=== PATIENT | female | born 1945 | race Caucasian/White ===

== ENCOUNTER 2017-03-23 07:41 | Emergency (ER) | payer MEDICARE ==
[2017-03-23 07:49] VITALS: RESP 16; TEMP 97.8
[2017-03-23] MEDS ORDERED: ONDANSETRON 4 MG/2 ML VIAL IVP STA (08:19)
[2017-03-23] MEDS ORDERED: SODIUM CHLORIDE 0.9% 1,000 ML IV STA (08:19)
[2017-03-23] MEDS ORDERED: FAMOTIDINE 20 MG/2 ML VIAL IV STA (08:19)
--- NOTE | 2017-03-23 08:28 | ED ---
General Adult HPI - General Chief complaint: Recheck/Abnormal Lab/Rx Stated complaint: Reaction to medication Time Seen by Provider: 03/23/17 08:13 Source: patient, RN notes reviewed Mode of arrival: wheelchair Limitations: no limitations - History of Present Illness Initial comments: Patient is a 71-year-old female who had her wisdom teeth on the lower removed 2 days ago. Given Tylenol codeine is also been taking ibuprofen for the pain. She states she's had no appetite since this procedure. She states she's only had a couple yogurt and a few glasses of water to drink. She does admit that seems like when she takes ibuprofen it upsets her stomach. She states she feels nauseated. No appetite feeling kind of weak this morning. Patient denies any other complaints or symptoms. Patient says she's taken without codeine before and never had this Reaction. She believes that the ibuprofen making her feel bad. She states she stopped taking it this morning. Patient denies any recent fever, chills, shortness of breath, chest pain, back pain, vomiting, numbness or tingling, dysuria or hematuria, constipation or diarrhea, headaches or visual changes, or any other complaints. - Related Data Home Medications Medication Instructions Recorded Confirmed Aspirin 40.5 mg PO DAILY 10/18/13 10/25/14 Levothyroxine Sodium [Synthroid] 75 mcg PO DAILY 10/18/13 10/25/14 Simvastatin [Zocor] 20 mg PO HS 10/18/13 10/25/14 diphenhydrAMINE [Benadryl] 25 mg PO HS PRN 10/18/13 10/25/14 Misoprostol [Cytotec] 100 mcg PO DAILY PRN 10/22/14 10/25/14 Previous Rx's Medication Instructions Recorded Ondansetron Odt [Zofran ODT] 4 mg PO Q8HR PRN #20 tab 03/23/17 Allergies Allergy/AdvReac Type Severity Reaction Status Date / Time acetaminophen AdvReac Anxiety Verified 03/23/17 07:49 [From Darvocet-N] and insomnia propoxyphene napsylate AdvReac anxiety Verified 03/23/17 07:49 [From Darvocet-N] and insomnia tetracycline [Tetracycline] AdvReac bowel Verified 03/23/17 07:49 aggrivation Review of Systems ROS Statement: Those systems with pertinent positive or pertinent negative responses have been documented in the HPI. ROS Other: All systems not noted in ROS Statement are negative. Past Medical History Past Medical History: Hyperlipidemia, Thyroid Disorder Additional Past Medical History / Comment(s): diverticulitis, pancreatitis, auto immune disorder- lichenplantis History of Any Multi-Drug Resistant Organisms: None Reported Past Surgical History: Bladder Surgery, Cholecystectomy, Hysterectomy, Tubal Ligation Additional Past Surgical History / Comment(s): nephroplexy, bowel resection, bladder suspension, wisdom teeth removal. Past Anesthesia/Blood Transfusion Reactions: No Reported Reaction Past Psychological History: No Psychological Hx Reported Smoking Status: Never smoker Past Alcohol Use History: Occasional Past Drug Use History: None Reported - Past Family History Mother Family Medical History: Dementia Father Additional Family Medical History / Comment(s): aortic anersym General Exam Limitations: no limitations Course Vital Signs 03/23/17 07:42 Temperature 97.8 F Pulse Rate 75 Respiratory 16 Rate Blood Pressure 147/72 O2 Sat by Pulse 100 Oximetry Medical Decision Making - Medical Decision Making Patient feeling well at this time was given nausea medication Pepcid and fluids. Patient able tolerate by mouth liquids and food here in emergency room. Will be discharged home with nausea medication. Advised only use ibuprofen if she is able to eat and drink and not taken on an empty stomach. Advised return if any symptoms increase or worsen or for any other concerns. - Lab Data Result diagrams: 03/23/17 08:30 03/23/17 08:30 Lab Results 03/23/17 03/23/17 03/23/17 Range/Units 07:52 08:30 08:30 WBC 7.9 (3.8-10.6) k/uL RBC 4.95 (3.80-5.40) m/uL Hgb 14.1 (11.4-16.0) gm/dL Hct 44.6 (34.0-46.0) % MCV 90.1 (80.0-100.0) fL MCH 28.5 (25.0-35.0) pg MCHC 31.6 (31.0-37.0) g/dL RDW 14.1 (11.5-15.5) % Plt Count 225 (150-450) k/uL Neutrophils % 88 % Lymphocytes % 6 % Monocytes % 3 % Eosinophils % 1 % Basophils % 1 % Neutrophils # 6.9 (1.3-7.7) k/uL Lymphocytes # 0.5 L (1.0-4.8) k/uL Monocytes # 0.3 (0-1.0) k/uL Eosinophils # 0.1 (0-0.7) k/uL Basophils # 0.0 (0-0.2) k/uL Sodium 140 (137-145) mmol/L Potassium 4.3 (3.5-5.1) mmol/L Chloride 106 (98-107) mmol/L Carbon Dioxide 16 L (22-30) mmol/L Anion Gap 18 mmol/L BUN 23 H (7-17) mg/dL Creatinine 1.16 H (0.52-1.04) mg/dL Est GFR (MDRD) Af Amer 56 (>60 ml/min/1.73 sqM) Est GFR (MDRD) Non-Af 46 (>60 ml/min/1.73 sqM) Glucose 67 L (74-99) mg/dL Calcium 9.6 (8.4-10.2) mg/dL Total Bilirubin 0.5 (0.2-1.3) mg/dL AST 54 H (14-36) U/L ALT 51 (9-52) U/L Alkaline Phosphatase 94 (38-126) U/L Total Protein 6.7 (6.3-8.2) g/dL Albumin 4.2 (3.5-5.0) g/dL Influenza Type A RNA Not Detected (Not Detectd) Influenza Type B (PCR) Not Detected (Not Detectd) Disposition Clinical Impression: Nausea Disposition: HOME SELF-CARE Condition: Good Instructions: Acute Nausea and Vomiting (ED) Additional Instructions: Please do not take ibuprofen on an empty stomach. Please use nausea medication as needed for symptoms and increase oral fluids as discussed. Please return to emergency room symptoms increase or worsen or for any other concerns. Prescriptions: Ondansetron Odt [Zofran ODT] 4 mg PO Q8HR PRN #20 tab PRN Reason: Nausea Referrals: Shad Low MD [Primary Care Provider] - 1-2 days Time of Disposition: 09:30
[2017-03-23 08:40] LABS: Basophils % (A) 1 %; Eosinophils # (A) 0.1 k/uL (0-0.7); Eosinophils % (A) 1 %; HCT 44.6 % (34.0-46.0); HGB 14.1 gm/dL (11.4-16.0); Lymphocytes # (A) 0.5 k/uL (1.0-4.8); Lymphocytes % (A) 6 %; MCH 28.5 pg (25.0-35.0); MCHC 31.6 g/dL (31.0-37.0); MCV 90.1 fL (80.0-100.0); Mean Platelet Volume 6.2; Monocytes # (A) 0.3 k/uL (0-1.0); Monocytes % (A) 3 %; Neutrophils # (A) 6.9 k/uL (1.3-7.7); Neutrophils % (A) 88 %; Platelet Count 225 k/uL (150-450); RBC 4.95 m/uL (3.80-5.40); RDW 14.1 % (11.5-15.5); WBC 7.9 k/uL (3.8-10.6)
[2017-03-23 08:48] LABS: Albumin 4.2 g/dL (3.5-5.0); Calcium 9.6 mg/dL (8.4-10.2); Potassium 4.3 mmol/L (3.5-5.1); Total Bilirubin 0.5 mg/dL (0.2-1.3); Total Protein 6.7 g/dL (6.3-8.2)
[2017-03-23 09:38] VITALS: BP 136/70; PULSE 78
== END 2017-03-23 09:38 | disposition home or self-care (01) ==
LOC: EC 07:41
DX: R11.0 Nausea (principal); E78.5 Hyperlipidemia, unspecified; E07.9 Disorder of thyroid, unspecified; Z79.82 Long term (current) use of aspirin; Z79.899 Other long term (current) drug therapy; Z88.1 Allergy status to other antibiotic agents; Z88.5 Allergy status to narcotic agent; Z88.8 Allergy status to other drugs, medicaments and biological substances
CPT/HCPCS: 99284; 96374; 96375; 96361; 36415; 80053; 85025; 87502; J2405

== ENCOUNTER 2017-05-04 11:32 | Observation (INO) | payer MEDICARE ==
[2017-05-04] MEDS ORDERED: SODIUM CHLORIDE 0.9% 1,000 ML IV STA (12:17)
[2017-05-04] MEDS ORDERED: METOCLOPRAMIDE 5 MG/ML 2 ML VIAL IVP STA (12:17)
[2017-05-04] MEDS ORDERED: SCOPOLAMINE 1.5MG/72HR PATCH TRANSDERM STA (12:18)
[2017-05-04] MEDS ORDERED: MECLIZINE 12.5 MG TAB PO STA (12:18)
--- NOTE | 2017-05-04 12:20 | ED ---
General Adult HPI - General Chief complaint: Dizziness Stated complaint: Dizziness Time Seen by Provider: 05/04/17 12:02 Source: patient, family, RN notes reviewed Mode of arrival: wheelchair Limitations: no limitations - History of Present Illness Initial comments: Patient is a pleasant 72-year-old female presenting to the emergency department with dizziness and nauseousness. Onset was 8 this morning. Patient feels like she is spinning and off balance. states he needs to help her walk. Patient feels like everything is spinning. No history of similar symptoms previously. Patient denies any abdominal pain. Patient states this is not like her previous pancreatitis. No confusion. No weakness. - Related Data Home Medications Medication Instructions Recorded Confirmed Aspirin 40.5 mg PO DAILY 10/18/13 05/04/17 Levothyroxine Sodium [Synthroid] 75 mcg PO DAILY 10/18/13 05/04/17 Simvastatin [Zocor] 20 mg PO HS 10/18/13 05/04/17 diphenhydrAMINE [Benadryl] 25 mg PO HS PRN 10/18/13 05/04/17 Misoprostol [Cytotec] 100 mcg PO DAILY PRN 10/22/14 05/04/17 Previous Rx's Medication Instructions Recorded Ondansetron Odt [Zofran ODT] 4 mg PO Q8HR PRN #20 tab 03/23/17 Allergies Allergy/AdvReac Type Severity Reaction Status Date / Time acetaminophen AdvReac Anxiety Verified 05/04/17 12:43 [From Darvocet-N] and insomnia propoxyphene napsylate AdvReac anxiety Verified 05/04/17 12:43 [From Darvocet-N] and insomnia tetracycline [Tetracycline] AdvReac bowel Verified 05/04/17 12:43 aggrivation Review of Systems ROS Statement: Those systems with pertinent positive or pertinent negative responses have been documented in the HPI. ROS Other: All systems not noted in ROS Statement are negative. Constitutional: Denies: fever Eyes: Denies: eye pain ENT: Denies: ear pain Respiratory: Denies: cough Cardiovascular: Denies: chest pain Endocrine: Denies: fatigue Gastrointestinal: Reports: nausea. Denies: abdominal pain Genitourinary: Denies: dysuria Musculoskeletal: Denies: back pain Skin: Denies: rash Neurological: Reports: vertigo. Denies: headache, weakness, confusion Past Medical History Past Medical History: Hyperlipidemia, Thyroid Disorder Additional Past Medical History / Comment(s): diverticulitis, pancreatitis, auto immune disorder- lichenplantis History of Any Multi-Drug Resistant Organisms: None Reported Past Surgical History: Bladder Surgery, Cholecystectomy, Hysterectomy, Tubal Ligation Additional Past Surgical History / Comment(s): nephroplexy, bowel resection, bladder suspension, wisdom teeth removal. Past Anesthesia/Blood Transfusion Reactions: No Reported Reaction Past Psychological History: No Psychological Hx Reported Smoking Status: Never smoker Past Alcohol Use History: Occasional Past Drug Use History: None Reported - Past Family History Mother Family Medical History: Dementia Father Additional Family Medical History / Comment(s): aortic anersym General Exam Limitations: no limitations General appearance: alert, other (Patient appears nauseous) Head exam: Present: atraumatic, normocephalic Eye exam: Present: normal appearance, PERRL, EOMI. Absent: nystagmus ENT exam: Present: normal exam Neck exam: Present: normal inspection Respiratory exam: Present: normal lung sounds bilaterally Cardiovascular Exam: Present: regular rate, normal rhythm GI/Abdominal exam: Present: soft. Absent: distended, tenderness Extremities exam: Present: normal inspection Neurological exam: Present: alert, oriented X3, CN II-XII intact. Absent: motor sensory deficit Expanded Neurological exam: Present: protecting the airway Cranial nerves: EOM's Intact: Normal Sensory exam: Upper Extremity Light Touch: Normal, Lower Extremity Light Touch: Normal Motor strength exam: RUE: 5, LUE: 5, RLE: 5, LLE: 5 Eye Response: (4) open spontaneously Motor Response: (6) obeys commands Verbal Response: (5) oriented Psychiatric exam: Present: normal affect, normal mood Skin exam: Present: normal color Course Vital Signs 05/04/17 05/04/17 11:50 13:49 Temperature 98.1 F Pulse Rate 68 61 Respiratory 20 20 Rate Blood Pressure 148/96 152/71 O2 Sat by Pulse 99 99 Oximetry EKG Findings - EKG Comments: EKG Findings:: Normal sinus rhythm 63. HI 150. QRS 84. QT 446. QTc 456. Normal axis. Normal QRS. No acute ST change. Medical Decision Making - Medical Decision Making Patient reevaluated and somewhat improved. Dizziness has improved however nausea still remains. Patient and family updated on results and plan. Dr. Morin was paged for admission for Dr. Low. - Lab Data Result diagrams: 05/04/17 12:30 05/04/17 12:30 Lab Results 05/04/17 05/04/17 05/04/17 Range/Units 12:30 12:30 12:30 WBC 6.1 (3.8-10.6) k/uL RBC 4.89 (3.80-5.40) m/uL Hgb 14.1 (11.4-16.0) gm/dL Hct 41.6 (34.0-46.0) % MCV 85.2 (80.0-100.0) fL MCH 28.8 (25.0-35.0) pg MCHC 33.8 (31.0-37.0) g/dL RDW 13.3 (11.5-15.5) % Plt Count 285 (150-450) k/uL Neutrophils % 71 % Lymphocytes % 16 % Monocytes % 5 % Eosinophils % 3 % Basophils % 1 % Neutrophils # 4.3 (1.3-7.7) k/uL Lymphocytes # 1.0 (1.0-4.8) k/uL Monocytes # 0.3 (0-1.0) k/uL Eosinophils # 0.2 (0-0.7) k/uL Basophils # 0.1 (0-0.2) k/uL PT 10.3 (9.0-12.0) sec INR 1.1 (<1.2) APTT 22.9 (22.0-30.0) sec Sodium 139 (137-145) mmol/L Potassium 4.2 (3.5-5.1) mmol/L Chloride 105 (98-107) mmol/L Carbon Dioxide 23 (22-30) mmol/L Anion Gap 11 mmol/L BUN 10 (7-17) mg/dL Creatinine 0.65 (0.52-1.04) mg/dL Est GFR (CKD-EPI)AfAm >90 (>60 ml/min/1.73 sqM) Est GFR (CKD-EPI)NonAf 89 (>60 ml/min/1.73 sqM) Glucose 90 (74-99) mg/dL Calcium 9.2 (8.4-10.2) mg/dL Total Bilirubin 0.4 (0.2-1.3) mg/dL AST 42 H (14-36) U/L ALT 46 (9-52) U/L Alkaline Phosphatase 95 (38-126) U/L Total Protein 6.8 (6.3-8.2) g/dL Albumin 4.0 (3.5-5.0) g/dL - Radiology Data Radiology results: report reviewed (Computed tomography scan of the brain shows no acute process) Disposition Clinical Impression: Acute vomiting, Vertigo Disposition: ADMITTED IP TO THIS HOSP Referrals: Shad Low MD [Primary Care Provider] - 1-2 days Decision Time: 14:32
--- NOTE | 2017-05-04 13:20 | CT ---
EXAMINATION TYPE: CT brain wo con DATE OF EXAM: 05/04/2017 HISTORY: Patient complains of nausea, vomiting, and history of pancreatitis. CT DLP: 990 mGycm. Automated Exposure Control for Dose Reduction was Utilized. TECHNIQUE: CT scan of the head is performed without contrast. COMPARISON: None. FINDINGS: There is no acute intracranial hemorrhage or midline shift identified. There is diffuse v entricular and sulcal prominence consistent with diffuse age-related cerebral atrophy. There is mild low-attenuation in the periventricular white matter consistent with chronic small vessel ischemic ch royer. The globes are intact and the visualized sinuses are clear. IMPRESSION: No acute intracranial hemorrhage or midline shift. There is mild diffuse age-related ce rebral atrophy and chronic small vessel ischemic change noted.
--- NOTE | 2017-05-04 13:26 | XR ---
EXAMINATION TYPE: XR chest 2V DATE OF EXAM: 05/04/2017 COMPARISON: Chest x-ray September 13, 2014 HISTORY: Weakness and nausea. TECHNIQUE: Frontal and lateral views of the chest are obtained. FINDINGS: Overlying bra artifact is present on current study. There is no focal air space opacity, p leural effusion, or pneumothorax seen. The cardiac silhouette size is within normal limits. The os seous structures are intact. IMPRESSION: No acute cardiopulmonary process.
[2017-05-04 13:34] LABS: Basophils # (A) 0.1 k/uL (0-0.2); Basophils % (A) 1 %; Eosinophils # (A) 0.2 k/uL (0-0.7); Eosinophils % (A) 3 %; HCT 41.6 % (34.0-46.0); HGB 14.1 gm/dL (11.4-16.0); Lymphocytes % (A) 16 %; MCH 28.8 pg (25.0-35.0); MCHC 33.8 g/dL (31.0-37.0); MCV 85.2 fL (80.0-100.0); Mean Platelet Volume 6.1; Monocytes # (A) 0.3 k/uL (0-1.0); Monocytes % (A) 5 %; Neutrophils # (A) 4.3 k/uL (1.3-7.7); Neutrophils % (A) 71 %; Platelet Count 285 k/uL (150-450); RBC 4.89 m/uL (3.80-5.40); RDW 13.3 % (11.5-15.5); WBC 6.1 k/uL (3.8-10.6)
[2017-05-04 13:37] LABS: ALT 46 U/L (9-52); AST 42 U/L (14-36); Alkaline Phosphatase 95 U/L (38-126); Anion Gap 11 mmol/L; Blood Urea Nitrogen 10 mg/dL (7-17); Calcium 9.2 mg/dL (8.4-10.2); Carbon Dioxide 23 mmol/L (22-30); Chloride 105 mmol/L (98-107); Glucose 90 mg/dL (74-99); Potassium 4.2 mmol/L (3.5-5.1); Sodium 139 mmol/L (137-145); Total Bilirubin 0.4 mg/dL (0.2-1.3); Total Protein 6.8 g/dL (6.3-8.2)
[2017-05-04] MEDS ORDERED: ONDANSETRON 4 MG/2 ML VIAL IVP STA (13:47)
[2017-05-04 13:48] LABS: INR 1.1 (<1.2); Partial Thromboplastin Time 22.9 sec (22.0-30.0); Prothrombin Time 10.3 sec (9.0-12.0)
[2017-05-04] MEDS ORDERED: ONDANSETRON 4 MG/2 ML VIAL IVP PRN (14:32)
[2017-05-04] MEDS ORDERED: LORazepam 2 MG/ML INJ IV PRN (14:32)
[2017-05-04] MEDS ORDERED: NALOXONE 0.4 MG/ML 1 ML VIAL IV PRN (14:32)
[2017-05-04] MEDS ORDERED: MECLIZINE 25 MG TAB PO PRN (14:35)
[2017-05-04 15:50] VITALS: BMI 20.9
--- NOTE | 2017-05-04 16:43 | P.CNNES ---
History of Present Illness Consult date: 05/04/17 Reason for Consult: Patient admitted with acute vertigo. History of Present Illness: This patient is a 72-year-old right-handed white female who was in her usual state of health until early this morning. Patient states she awoke at about 8 AM and was beginning her morning routine when she suddenly felt dizzy and off balance. She is feeling as if she was spinning around her room when she was walking. She states she had to hold onto the campos to get from the bedroom to the bathroom area. She was quite alarmed as she has never had this experience her feeling before. She does have a history of pancreatitis and apparently along with this symptom she was beginning to feel nauseated and according to her who was at bedside was also retching which was concerning for him. The patient states that she did not hit her head or have any trauma prior to the onset of the dizziness. As noted she has had no previous episodes of vertigo or dizziness in the past. Her decided to bring her to the emergency room and she was seen in the ER by Dr. Ruiz. She was sent for a computed tomography scan of the brain today which revealed no acute intracranial hemorrhage or midline shift. There is mild diffuse age-related cerebral atrophy and chronic small vessel ischemic changes noted. Patient was subsequent admitted to Hospital. She was treated with some Zofran as well as Antivert in the emergency room. She is now feeling somewhat better and her retching and nausea symptoms have completely resolved. On her neurological examination the patient does not appear to have any evidence of horizontal or vertical nystagmus on gaze testing. Her neurological examination is otherwise nonfocal at this time. Patient states she possibly may have had increase in salt intake over the last few days due to a change in her diet but this has not been very clearly defined by her. We have recommended that she should follow a low-sodium diet and to restrict fluid to some degree as this may bring on acute vertigo symptoms as well. Once again the patient denies any history of closed head injury or head trauma recently. She has now been admitted and neurology has been consulted for further evaluation and recommendations. Review of Systems Constitutional: Denies chills, Denies fever Eyes: denies blurred vision, denies pain Ears, nose, mouth and throat: Denies headache, Denies sore throat Cardiovascular: Denies chest pain, Denies shortness of breath Respiratory: Denies cough Gastrointestinal: Denies abdominal pain, Denies diarrhea, Denies nausea, Denies vomiting Genitourinary: Denies dysuria, Denies hematuria Musculoskeletal: Denies myalgias Integumentary: Denies pruritus, Denies rash Neurological: Reports gait dysfunction, Reports vertigo, Denies numbness, Denies weakness Psychiatric: Denies anxiety, Denies depression Endocrine: Denies fatigue, Denies weight change Past Medical History Past Medical History: Hyperlipidemia, Thyroid Disorder Additional Past Medical History / Comment(s): diverticulitis, pancreatitis, auto immune disorder- lichenplantis History of Any Multi-Drug Resistant Organisms: None Reported Past Surgical History: Bladder Surgery, Cholecystectomy, Hysterectomy, Tubal Ligation Additional Past Surgical History / Comment(s): nephroplexy, bowel resection, bladder suspension, wisdom teeth removal. Past Anesthesia/Blood Transfusion Reactions: No Reported Reaction Past Psychological History: No Psychological Hx Reported Smoking Status: Former smoker Past Alcohol Use History: Occasional Past Drug Use History: None Reported - Past Family History Mother Family Medical History: Dementia Father Additional Family Medical History / Comment(s): aortic anersym Medications and Allergies Home Medications Medication Instructions Recorded Confirmed Type Aspirin 40.5 mg PO DAILY 10/18/13 05/04/17 History Levothyroxine Sodium [Synthroid] 75 mcg PO DAILY 10/18/13 05/04/17 History Simvastatin [Zocor] 20 mg PO HS 10/18/13 05/04/17 History diphenhydrAMINE [Benadryl] 25 mg PO HS PRN 10/18/13 05/04/17 History Misoprostol [Cytotec] 100 mcg PO DAILY PRN 10/22/14 05/04/17 History Ondansetron Odt [Zofran ODT] 4 mg PO Q8HR PRN #20 tab 03/23/17 05/04/17 Rx Allergies Allergy/AdvReac Type Severity Reaction Status Date / Time acetaminophen AdvReac Anxiety Verified 05/04/17 12:43 [From Darvocet-N] and insomnia propoxyphene napsylate AdvReac anxiety Verified 05/04/17 12:43 [From Darvocet-N] and insomnia tetracycline [Tetracycline] AdvReac bowel Verified 05/04/17 12:43 aggrivation Physical Examination - Vital Signs Vital Signs: Vital Signs Temp Pulse Pulse Resp BP BP Pulse Ox 05/04/17 15:27 97.8 F 70 60 14 128/67 140/65 99 05/04/17 14:36 61 18 146/69 99 05/04/17 13:49 61 20 152/71 99 05/04/17 11:50 98.1 F 68 20 148/96 99 Intake and Output 05/04/17 05/04/17 05/04/17 06:59 14:59 22:59 Other: Voiding Method Toilet Weight 52.617 kg 52 kg Patient Weight 05/05/17 07:59 Weight 52 kg - Constitutional General appearance: average body habitus, cooperative - EENT EENT: PERRL, mucous membranes moist - Respiratory Respiratory: lungs clear, normal breath sounds - Cardiovascular Cardiovascular: regular rate, normal S1, normal S2 Extremities: no peripheral edema bilaterally - Gastrointestinal Gastrointestinal: normoactive bowel sounds - Integumentary Integumentary: normal - Neurologic Cranial nerve examination: PERRL, EOMI, VFF, V1/V2/V3 grossly intact, face symmetric, tongue midline, intact gag reflex, intact corneal reflex, normal palatal elevation Speech examination: intact Sensorimotor examination: intact Detailed motor examination: grossly full strength in all extremities Motor examination - right side: 4/5: biceps, triceps, wrist flexion, wrist extension, morning news producer, hip flexors, knee extensors, dorsiflexion, toe extension (EHL) , plantarflexion Motor examination - left side: 4/5: biceps, triceps, wrist flexion, wrist extension, morning news producer, hip flexors, knee extensors, dorsiflexion, toe extension (EHL) , plantarflexion Detailed sensory examination: intact Reflex and gait examination: intact Reflexes: 1+: ankle, bicep, knee, tricep - Musculoskeletal Musculoskeletal: no pain - Psychiatric Psychiatric: mood/affect appropriate, cooperative Results - Laboratory Findings CBC and BMP: 05/04/17 12:30 05/04/17 12:30 Abnormal Lab Findings: Abnormal Labs 05/04/17 12:30 AST 42 H Assessment and Plan (1) Benign paroxysmal positional vertigo Current Visit: Yes Status: Acute Code(s): H81.10 - BENIGN PAROXYSMAL VERTIGO , UNSPECIFIED EAR SNOMED Code(s): 584352069 (2) Acute vomiting Current Visit: Yes Status: Acute Code(s): R11.10 - VOMITING, UNSPECIFIED SNOMED Code(s): 69077087 (3) Pancreatitis Current Visit: No Status: Acute Code(s): K85.9 - ACUTE PANCREATITIS, UNSPECIFIED * DO NOT USE * SNOMED Code(s): 33222348 (4) Metabolic acidosis Current Visit: No Status: Acute Code(s): E87.2 - ACIDOSIS SNOMED Code(s): 83040519 Plan: This patient is a 72-year-old female who was admitted to Hospital with symptoms of acute onset of vertigo and spinning sensation early this morning. She awoke at 8 AM and was beginning her morning routine when she was experiencing spinning sensation and vertigo of sudden onset. She was also slowly beginning to be nauseated and had some upset stomach feeling. She was feeling nauseated to the point that she was retching at some point this morning and her was concerned. She was brought into the emergency room where she was evaluated by Dr. Ruiz. She went for a computed tomography scan of the brain results which are noted above. There was no acute findings. Patient was given some Reglan and Antivert in the emergency room and admitted to Hospital. Her neurological examination at this time is nonfocal. This patient likely has an episode of acute benign paroxysmal positional vertigo. We have recommended that she be placed on Antivert 25 mg by mouth twice a day as a scheduled dose for the next 2 weeks. She is to follow a low-sodium diet and to restrict her fluids somewhat. She may follow-up in the outpatient neurology clinic in 3-4 weeks. Her neurological examination at this time is nonfocal. We have reviewed the CAT scan results and our impression and plan with the patient in detail. Both she and her are in full understanding of our recommendations. We will continue to follow her progress closely during this admission. Overall prognosis at this time remains guarded. Time with Patient: Greater than 30
[2017-05-04] MEDS: METOCLOPRAMIDE 5 MG/ML 2 ML VIAL IVP SCH ×2 (17:53→23:32)
[2017-05-04] MEDS: SODIUM CHLORIDE 0.9% 1,000 ML IV SCH ×2 (17:53→23:36)
[2017-05-04] MEDS: MECLIZINE 25 MG TAB PO SCH (20:03)
[2017-05-05] MEDS: METOCLOPRAMIDE 5 MG/ML 2 ML VIAL IVP SCH ×2 (06:18→12:13)
[2017-05-05] MEDS: MECLIZINE 25 MG TAB PO SCH (08:28)
[2017-05-05 08:47] VITALS: BP 149/62; PULSE 60; RESP 14; TEMP 97.7
--- NOTE | 2017-05-05 15:42 | P.HPIM ---
History of Present Illness H&P Date: 05/04/17 Chief Complaint: Dizziness and vertigo Patient is a 72-year-old female with a known history of hypothyroidism and hyperlipidemia came to ER with complaints of dizziness and nausea.. Patient woke up in the morning and had breakfast suddenly started having dizzy and felt like room spinning. Patient felt like her previous pancreatitis. No history of headache. No fever no chills. No complaints of chest pain or shortness of breath. No abdominal pain no diarrhea. Patient did not have any symptoms like this before. Patient came to ER for further evaluation. CT head showed no acute abnormality. Mild diffuse use related cerebral atrophy and chronic small arousal ischemic changes noted. Patient was given meclizine while in the ER 2 times with slight improvement in symptoms. Patient otherwise denied any recent illnesses or sick contacts or recent travel. Denied any head injury or CVA in the past. Review of Systems Constitutional: Patient denies any fever or chills . No generalized weakness or weight loss. Abdomen: Patient denied nausea vomiting and diarrhea and abdominal pain. Cardiovascular: Patient denies any chest pain or short of breath no palpitations. Respiratory: patient denied any cough is from production. No shortness of breath Neurologic: Patient denied any numbness or tingling headache. Dizziness and spinning of the room Musculoskeletal: Patient denies any complaints of joint swelling or deformity. Skin: Negative Psychiatric: Negative Endocrine: No heat or cold intolerance. No recent weight gain. Genitourinary: No dysuria or hematuria. All other 14 point ROS negative except the above Past Medical History Past Medical History: Hyperlipidemia, Thyroid Disorder Additional Past Medical History / Comment(s): diverticulitis, pancreatitis, auto immune disorder- lichenplantis History of Any Multi-Drug Resistant Organisms: None Reported Past Surgical History: Bladder Surgery, Cholecystectomy, Hysterectomy, Tubal Ligation Additional Past Surgical History / Comment(s): nephroplexy, bowel resection, bladder suspension, wisdom teeth removal. Past Anesthesia/Blood Transfusion Reactions: No Reported Reaction Past Psychological History: No Psychological Hx Reported Smoking Status: Former smoker Past Alcohol Use History: Occasional Past Drug Use History: None Reported - Past Family History Mother Family Medical History: Dementia Father Additional Family Medical History / Comment(s): aortic anersym Medications and Allergies Home Medications Medication Instructions Recorded Confirmed Type Aspirin 40.5 mg PO DAILY 10/18/13 05/04/17 History Levothyroxine Sodium [Synthroid] 75 mcg PO DAILY 10/18/13 05/04/17 History Simvastatin [Zocor] 20 mg PO HS 10/18/13 05/04/17 History diphenhydrAMINE [Benadryl] 25 mg PO HS PRN 10/18/13 05/04/17 History Misoprostol [Cytotec] 100 mcg PO DAILY PRN 10/22/14 05/04/17 History Ondansetron Odt [Zofran ODT] 4 mg PO Q8HR PRN #20 tab 03/23/17 05/04/17 Rx Meclizine [Antivert] 25 mg PO BID 14 Days #28 tab 05/05/17 Rx Allergies Allergy/AdvReac Type Severity Reaction Status Date / Time acetaminophen AdvReac Anxiety Verified 05/04/17 12:43 [From Darvocet-N] and insomnia propoxyphene napsylate AdvReac anxiety Verified 05/04/17 12:43 [From Darvocet-N] and insomnia tetracycline [Tetracycline] AdvReac bowel Verified 05/04/17 12:43 aggrivation Physical Exam Vitals: Vital Signs Temp Pulse Pulse Resp BP BP Pulse Ox 05/04/17 15:27 97.8 F 70 60 14 128/67 140/65 99 05/04/17 14:36 61 18 146/69 99 05/04/17 13:49 61 20 152/71 99 05/04/17 11:50 98.1 F 68 20 148/96 99 Intake and Output 05/04/17 05/04/17 05/04/17 06:59 14:59 22:59 Other: Voiding Method Toilet Weight 52.617 kg 52 kg Patient Weight 05/05/17 07:59 Weight 52 kg PHYSICAL EXAMINATION: Patient is lying in the bed comfortably, no acute distress, awake alert and oriented.. HEENT: Normocephalic. Neck is supple. Pupils reactive. Nostrils clear. Oral cavity is moist. Ears reveal no drainage. Neck reveals no JVD, carotid bruits, or thyromegaly. CHEST EXAMINATION: Trachea is central. Symmetrical expansion. Lung bae clear to auscultation and percussion. CARDIAC: Normal S1, S2 with no gallops. No murmurs ABDOMEN: Soft. Bowel sounds normal. No organomegaly. No abdominal bruits. Extremities: reveal no edema. No clubbing or cyanosis Neurologically awake, alert, oriented x3 with well-coordinated movements. No focal deficits noted Skin: No rash or skin lesions. Psychiatric: Coperative. Nonsuicidal Musculoskeletal: No joint swelling or deformity. Normal range of motion. Results CBC & Chem 7: 05/04/17 12:30 05/04/17 12:30 Labs: Abnormal Lab Results - Last 24 Hours (Table) 05/04/17 Range/Units 12:30 AST 42 H (14-36) U/L Thrombosis Risk Factor Assmnt - Choose All That Apply Other Risk Factors: Yes Each Risk Factor Represents 2 Points: Age 61-74 years Thrombosis Risk Factor Assessment Total Risk Factor Score: 2 Thrombosis Risk Factor Assessment Level: Low Risk Assessment and Plan Assessment: Dizziness and vertigo likely due to benign positional vertigo Hyperlipidemia Hypothyroidism History of pancreatitis Plan: Patient will be continued on telemetry monitoring. Continue with meclizine when necessary. Neurology evaluation. Further recommendations based on the clinical course. Follow closely while in the hospital. Time with Patient: Greater than 30
[2017-05-05] MEDS: SODIUM CHLORIDE 0.9% 1,000 ML IV SCH (16:17)
--- NOTE | 2017-05-14 12:00 | P.DS ---
Providers Date of admission: 05/04/17 14:32 Expected date of discharge: 05/05/17 Attending physician: Shad Low Consults: 05/04/17 14:32 Consult Physician Urgent Consulting Provider: Norma Hernandez Consult Reason/Comments: Vertigo Do you want consulting provider notified?: Yes Primary care physician: Shad Low Hospital Course: Discharge diagnosis Dizziness and vertigo likely due to benign positional vertigo. Improved symptomatically Hyperlipidemia Hypothyroidism History of pancreatitis Hospital course Patient is a 72-year-old female with a known history of hypothyroidism and hyperlipidemia came to ER with complaints of dizziness and nausea.. Patient woke up in the morning and had breakfast suddenly started having dizzy and felt like room spinning. Patient felt like her previous pancreatitis. No history of headache. No fever no chills. No complaints of chest pain or shortness of breath. No abdominal pain no diarrhea. Patient did not have any symptoms like this before. Patient came to ER for further evaluation. CT head showed no acute abnormality. Mild diffuse use related cerebral atrophy and chronic small arousal ischemic changes noted. Patient was given meclizine while in the ER 2 times with slight improvement in symptoms. Patient otherwise denied any recent illnesses or sick contacts or recent travel. Denied any head injury or CVA in the past. Patient was continued on telemetry monitoring. Continued with meclizine when necessary. Neurology has seen the patient. Patient did improve clinically and is stable to be discharged home today. PHYSICAL EXAMINATION: Patient is lying in the bed comfortably, no acute distress, awake alert and oriented.. HEENT: Normocephalic. Neck is supple. Pupils reactive. Nostrils clear. Oral cavity is moist. Ears reveal no drainage. Neck reveals no JVD, carotid bruits, or thyromegaly. CHEST EXAMINATION: Trachea is central. Symmetrical expansion. Lung bae clear to auscultation and percussion. CARDIAC: Normal S1, S2 with no gallops. No murmurs ABDOMEN: Soft. Bowel sounds normal. No organomegaly. No abdominal bruits. Extremities: reveal no edema. No clubbing or cyanosis Neurologically awake, alert, oriented x3 with well-coordinated movements. No focal deficits noted Skin: No rash or skin lesions. Psychiatric: Coperative. Nonsuicidal Musculoskeletal: No joint swelling or deformity. Normal range of motion. Vital Signs 05/04/17 05/04/17 05/04/17 11:50 13:49 14:36 Temperature 98.1 F Pulse Rate 68 61 61 Pulse Rate [ Pulse Oximetery ] Respiratory 20 20 18 Rate Blood Pressure 148/96 152/71 146/69 Blood Pressure [Right Arm] O2 Sat by Pulse 99 99 99 Oximetry 05/04/17 05/04/17 05/04/17 15:27 20:00 23:18 Temperature 97.8 F 98.0 F Pulse Rate 70 Pulse Rate [ 60 69 Pulse Oximetery ] Respiratory 14 16 16 Rate Blood Pressure 128/67 Blood Pressure 140/65 104/56 [Right Arm] O2 Sat by Pulse 99 98 Oximetry 05/04/17 05/05/17 05/05/17 23:55 04:00 08:00 Temperature 97.7 F Pulse Rate Pulse Rate [ 60 Pulse Oximetery ] Respiratory 16 16 14 Rate Blood Pressure Blood Pressure 149/62 [Right Arm] O2 Sat by Pulse 96 Oximetry Patient Condition at Discharge: Good Plan - Discharge Summary New Discharge Prescriptions: New Meclizine [Antivert] 25 mg PO BID 14 Days #28 tab Continue diphenhydrAMINE [Benadryl] 25 mg PO HS PRN PRN Reason: sleep Simvastatin [Zocor] 20 mg PO HS Levothyroxine Sodium [Synthroid] 75 mcg PO DAILY Aspirin 40.5 mg PO DAILY Misoprostol [Cytotec] 100 mcg PO DAILY PRN PRN Reason: MOUTH SORES Ondansetron Odt [Zofran ODT] 4 mg PO Q8HR PRN #20 tab PRN Reason: Nausea Discharge Medication List Aspirin 40.5 mg PO DAILY 10/18/13 [History] Levothyroxine Sodium [Synthroid] 75 mcg PO DAILY 10/18/13 [History] Simvastatin [Zocor] 20 mg PO HS 10/18/13 [History] diphenhydrAMINE [Benadryl] 25 mg PO HS PRN 10/18/13 [History] Misoprostol [Cytotec] 100 mcg PO DAILY PRN 10/22/14 [History] Ondansetron Odt [Zofran ODT] 4 mg PO Q8HR PRN #20 tab 03/23/17 [Rx] Meclizine [Antivert] 25 mg PO BID 14 Days #28 tab 05/05/17 [Rx] Follow up Appointment(s)/Referral(s): Carol Hernandez MD [STAFF PHYSICIAN] - 1 Week Shad Low MD [Primary Care Provider] - 1-2 days Patient Instructions/Handouts: Vertigo (GEN) Discharge Disposition: HOME SELF-CARE
== END 2017-05-05 16:03 | disposition home or self-care (01) ==
LOC: EC 11:32 → 3OBS 14:32
PROVIDERS: ADMIT Family Medicine; ATTEND Family Medicine
DX: R42 Dizziness and giddiness (principal); R11.2 Nausea with vomiting, unspecified; E78.5 Hyperlipidemia, unspecified; E03.9 Hypothyroidism, unspecified; E87.2 Acidosis; D89.89 Other specified disorders involving the immune mechanism, not elsewhere classified; L43.9 Lichen planus, unspecified; K57.90 Diverticulosis of intestine, part unspecified, without perforation or abscess without bleeding; Z79.82 Long term (current) use of aspirin; Z79.899 Other long term (current) drug therapy; Z88.1 Allergy status to other antibiotic agents; Z88.5 Allergy status to narcotic agent; Z88.6 Allergy status to analgesic agent; Z87.19 Personal history of other diseases of the digestive system; Z87.891 Personal history of nicotine dependence; Z81.8 Family history of other mental and behavioral disorders
CPT/HCPCS: 96361 ×4; 96374 ×2; 96375 ×2; 99285 ×2; 96376 ×2; 36415; 93005; 80053; 85025; 85610; 85730; 71046; 70450; G0378 ×2; J2765 ×2; J2405

== ENCOUNTER → 2017-05-29 | Outpatient (CLI) | payer MEDICARE ==
--- NOTE | 2017-05-31 10:51 | MM ---
Reason for exam: screening (asymptomatic). Last mammogram was performed 2 years and 2 months ago. History: Patient is postmenopausal. Took estrogen for 15 years. Physical Findings: A clinical breast exam by your physician is recommended on an annual basis and results should be correlated with mammographic findings. MG 3D Screening Mammo W/Cad Bilateral CC and MLO view(s) were taken. Prior study comparison: March 18, 2015, bilateral MG screening mammo w CAD. May 05, 2013, bilateral digital screening mammo w/CAD. ASSESSMENT: Incomplete: need additional imaging evaluation, BI-RAD 0 RECOMMENDATION: Special view mammogram and ultrasound of the right breast. [facility] will attempt to contact patient to return for supplemental views and ultrasound.
== END | disposition home or self-care (01) ==
LOC: RADMAMWWP 07:11
PROVIDERS: ATTEND Obstetrics & Gynecology
DX: Z12.31 Encounter for screening mammogram for malignant neoplasm of breast (principal)
CPT/HCPCS: 77063; 77067

== ENCOUNTER → 2017-06-06 | Outpatient (CLI) | payer MEDICARE ==
--- NOTE | 2017-06-11 11:34 | USB ---
Reason for exam: additional evaluation requested from abnormal screening. History: Patient is postmenopausal. Took estrogen for 15 years. Physical Findings: Nurse Summary: 1cm nodule in the right breast at 10 o'clock (nurse lizzeth). US Breast Workup Limited RT Right breast ultrasound demonstrates no cystic or solid lesion seen. These results were verbally communicated with the patient and result sheet given to the patient on 06/06/17. ASSESSMENT: Negative, BI-RAD 1 RECOMMENDATION: Return to routine screening mammogram schedule for both breasts. Manage on a clinical basis with regard to right palpable.
== END | disposition home or self-care (01) ==
LOC: RADMAMWWP 14:48
PROVIDERS: ATTEND Obstetrics & Gynecology
DX: R92.8 Other abnormal and inconclusive findings on diagnostic imaging of breast (principal)

== ENCOUNTER 2017-07-28 18:17 | Inpatient (IN) | payer MEDICARE ==
[2017-07-28] MEDS ORDERED: SODIUM CHLORIDE 0.9% 1,000 ML IV STA (18:40)
[2017-07-28] MEDS ORDERED: HYDROmorphone 0.5 MG/0.5 ML SYRINGE IVP STA (18:40)
--- NOTE | 2017-07-28 18:44 | ED ---
Abdominal Pain HPI - General Chief Complaint: Abdominal Pain Stated Complaint: Abdominal pain Time Seen by Provider: 07/28/17 18:24 Source: patient Mode of arrival: wheelchair Limitations: no limitations - History of Present Illness Initial Comments: Patient is a 72-year-old female presenting for right upper quadrant pain. She states that she has a history of cholecystectomy and a bowel resection approximately 10 years ago and that she chronically passes gallstones. She states that this feels very similar and that this pain started yesterday without radiation of feels a "grabbing sensation" that has been constant. She denies any fevers or chills or nausea/vomiting/diarrhea. She tried drinking some wine to alleviate the pain but denies that this helped. She also states that she is not alcoholic. - Related Data Home Medications Medication Instructions Recorded Confirmed Aspirin 40.5 mg PO DAILY 10/18/13 05/04/17 Levothyroxine Sodium [Synthroid] 75 mcg PO DAILY 10/18/13 05/04/17 Simvastatin [Zocor] 20 mg PO HS 10/18/13 05/04/17 diphenhydrAMINE [Benadryl] 25 mg PO HS PRN 10/18/13 05/04/17 Misoprostol [Cytotec] 100 mcg PO DAILY PRN 10/22/14 05/04/17 Previous Rx's Medication Instructions Recorded Ondansetron Odt [Zofran ODT] 4 mg PO Q8HR PRN #20 tab 03/23/17 Meclizine [Antivert] 25 mg PO BID 14 Days #28 tab 05/05/17 Allergies Allergy/AdvReac Type Severity Reaction Status Date / Time acetaminophen AdvReac Anxiety Verified 07/28/17 18:22 [From Darvocet-N] and insomnia propoxyphene napsylate AdvReac anxiety Verified 07/28/17 18:22 [From Darvocet-N] and insomnia tetracycline [Tetracycline] AdvReac bowel Verified 07/28/17 18:22 aggrivation Review of Systems ROS Statement: Those systems with pertinent positive or pertinent negative responses have been documented in the HPI. Constitutional: Negative for chills, fatigue and fever. HENT: Negative for congestion. Respiratory: Negative for chest tightness, shortness of breath and wheezing. Negative for cough Cardiovascular: Negative for chest pain and palpitations. Gastrointestinal: Positive for abdominal pain. Negative for abdominal distention , diarrhea, nausea and vomiting. Genitourinary: Negative for dysuria. Musculoskeletal: Negative for back pain, neck pain and neck stiffness. Skin: Negative for color change. Neurological: Negative for dizziness, speech difficulty, weakness and light- headedness. Psychiatric/Behavioral: Negative for agitation and confusion. The patient is not nervous/anxious. ROS Other: All systems not noted in ROS Statement are negative. Past Medical History Past Medical History: Hyperlipidemia, Thyroid Disorder Additional Past Medical History / Comment(s): diverticulitis, pancreatitis, auto immune disorder- lichenplantis History of Any Multi-Drug Resistant Organisms: None Reported Past Surgical History: Bladder Surgery, Cholecystectomy, Hysterectomy, Tubal Ligation Additional Past Surgical History / Comment(s): nephroplexy, bowel resection, bladder suspension, wisdom teeth removal. Past Anesthesia/Blood Transfusion Reactions: No Reported Reaction Past Psychological History: No Psychological Hx Reported Smoking Status: Former smoker Past Alcohol Use History: Occasional Past Drug Use History: None Reported - Past Family History Mother Family Medical History: Dementia Father Additional Family Medical History / Comment(s): aortic anersym General Exam - General Exam Comments Initial Comments: Constitutional: Pt is oriented to person, place, and time. Pt appears well- developed and well-nourished. No distress. HENT: Head: Normocephalic and atraumatic. Eyes: EOM are normal. Neck: Normal range of motion. Neck supple. Cardiovascular: Normal rate, regular rhythm, S1 normal, S2 normal and normal heart sounds. Exam reveals no gallop and no friction rub. No murmur heard. Pulmonary/Chest: Effort normal and breath sounds normal. No tachypnea and no bradypnea. No respiratory distress. No wheezes or rales noted. Abdominal: Soft. Bowel sounds are normal. Pt exhibits no shifting dullness, no distension, no pulsatile liver, no fluid wave, no abdominal bruit and no ascites. There is no tenderness. There is no rigidity, no rebound, no guarding, no tenderness at McBurney's point and negative Kimball's sign. Musculoskeletal: Normal range of motion. Neurological: Pt is alert and oriented to person, place, and time. No cranial nerve deficit. Skin: Skin is warm and dry. No rash noted. Pt is not diaphoretic. No erythema. No pallor. Psychiatric: Pt has a normal mood and affect. Pt behavior is normal. Thought content normal. Limitations: no limitations Course Vital Signs 07/28/17 07/28/17 07/28/17 18:21 19:32 20:52 Temperature 98.1 F 97.1 F L 97.3 F L Pulse Rate 68 70 68 Respiratory 20 16 16 Rate Blood Pressure 118/64 153/78 123/63 O2 Sat by Pulse 100 97 100 Oximetry - Reevaluation(s) Reevaluation #1: 07/28/17 20:33 Patient continues to remain hemodynamically stable but laboratory studies show that there is no leukocytosis. However, lactic acid is elevated at 3.9 and there is no clear source. Blood cultures were also added on and patient has been having fluids initiated. CT of the abdomen is been performed and shows no evidence of acute pathology that explained the lactic acidosis. There is transaminitis and therefore ultrasound of the abdomen will be completed. Medical Decision Making - Medical Decision Making Ultrasound was also performed and showed no evidence of acute pathology. Patient continues to have vomiting and with a lactic acid of 3.9, patient will need to be admitted to hospital for continued hydration and monitoring. It is not suspected that the patient has mesenteric ischemia as there is other alternative diagnoses which would include the liver and gallbladder pathology which is supported by the evidence of the transaminitis. Explained all labs and diagnostic test results and that we will admit patient to hospital. Pt is agreeable to plan and case has been discussed with Dr. Morin and they agree to accept the pt. cardiac evaluation also revealed the EKG was within normal limits and troponin was not elevated. - Lab Data Result diagrams: 07/28/17 18:55 07/28/17 18:55 Lab Results 07/28/17 07/28/17 07/28/17 Range/Units 18:55 18:55 18:55 WBC 5.3 (3.8-10.6) k/uL RBC 4.96 (3.80-5.40) m/uL Hgb 15.0 (11.4-16.0) gm/dL Hct 43.4 (34.0-46.0) % MCV 87.5 (80.0-100.0) fL MCH 30.2 (25.0-35.0) pg MCHC 34.6 (31.0-37.0) g/dL RDW 14.3 (11.5-15.5) % Plt Count 142 L (150-450) k/uL Neutrophils % 57 % Lymphocytes % 29 % Monocytes % 5 % Eosinophils % 5 % Basophils % 1 % Neutrophils # 3.0 (1.3-7.7) k/uL Lymphocytes # 1.5 (1.0-4.8) k/uL Monocytes # 0.2 (0-1.0) k/uL Eosinophils # 0.3 (0-0.7) k/uL Basophils # 0.1 (0-0.2) k/uL PT (9.0-12.0) sec INR (<1.2) APTT (22.0-30.0) sec Sodium 146 H (137-145) mmol/L Potassium 4.4 (3.5-5.1) mmol/L Chloride 107 (98-107) mmol/L Carbon Dioxide 20 L (22-30) mmol/L Anion Gap 19 mmol/L BUN 8 (7-17) mg/dL Creatinine 0.70 (0.52-1.04) mg/dL Est GFR (CKD-EPI)AfAm >90 (>60 ml/min/1.73 sqM) Est GFR (CKD-EPI)NonAf 86 (>60 ml/min/1.73 sqM) Glucose 97 (74-99) mg/dL Lactic Ac Sepsis Rflx Plasma Lactic Acid Mehrdad 3.5 H* (0.7-2.0) mmol/L Calcium 9.7 (8.4-10.2) mg/dL Magnesium 2.3 (1.6-2.3) mg/dL Total Bilirubin 0.3 (0.2-1.3) mg/dL AST 143 H (14-36) U/L ALT 67 H (9-52) U/L Alkaline Phosphatase 88 (38-126) U/L Troponin I (0.000-0.034) ng/mL Total Protein 7.4 (6.3-8.2) g/dL Albumin 4.6 (3.5-5.0) g/dL Lipase 152 (23-300) U/L Urine Color Urine Appearance (Clear) Urine pH (5.0-8.0) Ur Specific Stokes (1.001-1.035) Urine Protein (Negative) Urine Glucose (UA) (Negative) Urine Ketones (Negative) Urine Blood (Negative) Urine Nitrite (Negative) Urine Bilirubin (Negative) Urine Urobilinogen (<2.0) mg/dL Ur Leukocyte Esterase (Negative) 07/28/17 07/28/17 07/28/17 Range/Units 18:55 18:55 19:23 WBC (3.8-10.6) k/uL RBC (3.80-5.40) m/uL Hgb (11.4-16.0) gm/dL Hct (34.0-46.0) % MCV (80.0-100.0) fL MCH (25.0-35.0) pg MCHC (31.0-37.0) g/dL RDW (11.5-15.5) % Plt Count (150-450) k/uL Neutrophils % % Lymphocytes % % Monocytes % % Eosinophils % % Basophils % % Neutrophils # (1.3-7.7) k/uL Lymphocytes # (1.0-4.8) k/uL Monocytes # (0-1.0) k/uL Eosinophils # (0-0.7) k/uL Basophils # (0-0.2) k/uL PT 10.0 (9.0-12.0) sec INR 1.0 (<1.2) APTT 20.7 L (22.0-30.0) sec Sodium (137-145) mmol/L Potassium (3.5-5.1) mmol/L Chloride (98-107) mmol/L Carbon Dioxide (22-30) mmol/L Anion Gap mmol/L BUN (7-17) mg/dL Creatinine (0.52-1.04) mg/dL Est GFR (CKD-EPI)AfAm (>60 ml/min/1.73 sqM) Est GFR (CKD-EPI)NonAf (>60 ml/min/1.73 sqM) Glucose (74-99) mg/dL Lactic Ac Sepsis Rflx Y Plasma Lactic Acid Mehrdad (0.7-2.0) mmol/L Calcium (8.4-10.2) mg/dL Magnesium (1.6-2.3) mg/dL Total Bilirubin (0.2-1.3) mg/dL AST (14-36) U/L ALT (9-52) U/L Alkaline Phosphatase (38-126) U/L Troponin I <0.012 (0.000-0.034) ng/mL Total Protein (6.3-8.2) g/dL Albumin (3.5-5.0) g/dL Lipase (23-300) U/L Urine Color Urine Appearance (Clear) Urine pH (5.0-8.0) Ur Specific Stokes (1.001-1.035) Urine Protein (Negative) Urine Glucose (UA) (Negative) Urine Ketones (Negative) Urine Blood (Negative) Urine Nitrite (Negative) Urine Bilirubin (Negative) Urine Urobilinogen (<2.0) mg/dL Ur Leukocyte Esterase (Negative) 07/28/17 Range/Units 19:50 WBC (3.8-10.6) k/uL RBC (3.80-5.40) m/uL Hgb (11.4-16.0) gm/dL Hct (34.0-46.0) % MCV (80.0-100.0) fL MCH (25.0-35.0) pg MCHC (31.0-37.0) g/dL RDW (11.5-15.5) % Plt Count (150-450) k/uL Neutrophils % % Lymphocytes % % Monocytes % % Eosinophils % % Basophils % % Neutrophils # (1.3-7.7) k/uL Lymphocytes # (1.0-4.8) k/uL Monocytes # (0-1.0) k/uL Eosinophils # (0-0.7) k/uL Basophils # (0-0.2) k/uL PT (9.0-12.0) sec INR (<1.2) APTT (22.0-30.0) sec Sodium (137-145) mmol/L Potassium (3.5-5.1) mmol/L Chloride (98-107) mmol/L Carbon Dioxide (22-30) mmol/L Anion Gap mmol/L BUN (7-17) mg/dL Creatinine (0.52-1.04) mg/dL Est GFR (CKD-EPI)AfAm (>60 ml/min/1.73 sqM) Est GFR (CKD-EPI)NonAf (>60 ml/min/1.73 sqM) Glucose (74-99) mg/dL Lactic Ac Sepsis Rflx Plasma Lactic Acid Mehrdad (0.7-2.0) mmol/L Calcium (8.4-10.2) mg/dL Magnesium (1.6-2.3) mg/dL Total Bilirubin (0.2-1.3) mg/dL AST (14-36) U/L ALT (9-52) U/L Alkaline Phosphatase (38-126) U/L Troponin I (0.000-0.034) ng/mL Total Protein (6.3-8.2) g/dL Albumin (3.5-5.0) g/dL Lipase (23-300) U/L Urine Color Colorless Urine Appearance Clear (Clear) Urine pH 7.0 (5.0-8.0) Ur Specific Stokes 1.003 (1.001-1.035) Urine Protein Negative (Negative) Urine Glucose (UA) Negative (Negative) Urine Ketones Negative (Negative) Urine Blood Negative (Negative) Urine Nitrite Negative (Negative) Urine Bilirubin Negative (Negative) Urine Urobilinogen <2.0 (<2.0) mg/dL Ur Leukocyte Esterase Negative (Negative) - EKG Data EKG Comments: EKG shows normal sinus rhythm with a rate of 70 bpm, OK interval 134, QRS 74, QTC 464. There is no significant ST depressions or elevations. Disposition Clinical Impression: Intractable nausea and vomiting, Transaminitis, Elevated lactic acid level Disposition: ADMITTED IP TO THIS [facility] Condition: Fair Referrals: Shad Low MD [Primary Care Provider] - 1-2 days Decision to Admit Reason: Admit from EC Decision Date: 07/28/17 Decision Time: 22:28
[2017-07-28 19:16] LABS: ALT 67 U/L (9-52); AST 143 U/L (14-36); Albumin 4.6 g/dL (3.5-5.0); Alkaline Phosphatase 88 U/L (38-126); Anion Gap 19 mmol/L; Basophils # (A) 0.1 k/uL (0-0.2); Basophils % (A) 1 %; Blood Urea Nitrogen 8 mg/dL (7-17); Calcium 9.7 mg/dL (8.4-10.2); Carbon Dioxide 20 mmol/L (22-30); Chloride 107 mmol/L (98-107); Eosinophils # (A) 0.3 k/uL (0-0.7); Eosinophils % (A) 5 %; Glucose 97 mg/dL (74-99); HCT 43.4 % (34.0-46.0); Lipase 152 U/L (23-300); Lymphocytes # (A) 1.5 k/uL (1.0-4.8); Lymphocytes % (A) 29 %; MCH 30.2 pg (25.0-35.0); MCHC 34.6 g/dL (31.0-37.0); MCV 87.5 fL (80.0-100.0); Magnesium 2.3 mg/dL (1.6-2.3); Mean Platelet Volume 6.7; Monocytes # (A) 0.2 k/uL (0-1.0); Monocytes % (A) 5 %; Neutrophils % (A) 57 %; Platelet Count 142 k/uL (150-450); Potassium 4.4 mmol/L (3.5-5.1); RBC 4.96 m/uL (3.80-5.40); RDW 14.3 % (11.5-15.5); Sodium 146 mmol/L (137-145); Total Bilirubin 0.3 mg/dL (0.2-1.3); Total Protein 7.4 g/dL (6.3-8.2); WBC 5.3 k/uL (3.8-10.6)
[2017-07-28] MEDS ORDERED: SODIUM CHLORIDE 0.9% 500 ML IV ONE (19:28)
[2017-07-28] MEDS: SODIUM CHLORIDE 0.9% 1,000 ML IV SCH ×2 (19:49→21:54)
[2017-07-28] MEDS ORDERED: ONDANSETRON 4 MG/2 ML VIAL IVP STA ×2 (19:52→22:29)
[2017-07-28 19:54] LABS: Partial Thromboplastin Time 20.7 sec (22.0-30.0)
[2017-07-28 20:09] LABS: Appearance,Urine Clear (Clear); Bilirubin,Urine Negative (Negative); Blood,Urine Negative (Negative); Color,Urine Colorless; Glucose,Urine (UA) Negative (Negative); Ketones,Urine Negative (Negative); Leukocyte Esterase,Urine Negative (Negative); Nitrite,Urine Negative (Negative); Protein,Urine Negative (Negative); Specific Gravity,Urine 1.003 (1.001-1.035); Urobilinogen,Urine <2.0 mg/dL (<2.0)
--- NOTE | 2017-07-28 20:24 | CT ---
EXAMINATION TYPE: CT abdomen pelvis w con DATE OF EXAM: 07/28/2017 HISTORY: RUQ abd pain, nausea and vomiting. CT DLP: 382.2mGycm Automated Exposure Control for Dose Reduction was Utilized. CONTRAST: CT scan of the abdomen and pelvis is performed with IV Contrast, patient injected with 100ml mL of Is ovue 300. COMPARISON: CT abdomen and pelvis September 13, 2014 FINDINGS: LUNG BASES: There is peripheral reticulation and fibrosis seen bilaterally. LIVER/GB: Cholecystectomy clips are redemonstrated. PANCREAS: No significant abnormality is seen. SPLEEN: Subcentimeter splenic lesion axial image 21 is redemonstrated too small to further characteri ze but presumed benign. ADRENALS: No significant abnormality is seen. KIDNEYS: There is symmetric cortical medullary uptake and excretion from both kidneys with mild right -sided hydronephrosis and proximal hydroureter but no obstructing calculus identified. A few scattere d right-sided pelvic phleboliths are seen. BOWEL: Surgical sutures in the sigmoid: Axial image 64 are redemonstrated. There is no suspicious sma ll or large bowel dilatation. Evaluation of bowel is slightly suboptimal secondary to lack of enteric contrast. UTERUS/ADNEXA: Uterus is surgically absent or markedly atrophic in appearance. LYMPH NODES: No greater than 1cm abdominal or pelvic lymph nodes are appreciated. OSSEOUS STRUCTURES: There is dextroconvex scoliosis centered in the midlumbar spine. There is multile rupesh facet arthropathy in the mid to lower lumbar spine. There is persistent grade 1 anterolisthesis o f L4 on L5. OTHER: There is mild peripheral plaque in the distal abdominal aorta. IMPRESSION: No significant new or acute finding is seen to account for patient's clinical symptoms.
--- NOTE | 2017-07-28 21:53 | US ---
EXAMINATION TYPE: US abdomen limited DATE OF EXAM: 07/28/2017 COMPARISON: CT abdomen and pelvis earlier today CLINICAL HISTORY: Pain, nausea, vomiting, elevated liver enzymes. EXAM MEASUREMENTS: Liver Length: 12.4 cm Gallbladder Wall: Surgically absent CBD: 0.8 cm Right Kidney: 9.6 x 4.7 x 4.4 cm Pancreas: partially obscured by bowel gas, portions visualized wnl Liver: wnl Gallbladder: Surgically absent Evidence for sonographic Kimball's sign: no CBD: wnl Right Kidney: wnl Visualized pancreas appears within normal limits. Some portions are secured by overlying bowel gas bu t pancreas appeared within normal limits on recent CT. Visualized liver is unremarkable. Gallbladder surgically absent. IMPRESSION: No worrisome intrahepatic mass or intrahepatic ductal dilatation.
[2017-07-28] MEDS ORDERED: MORPHINE SULFATE 2 MG/ML SYRINGE IV PRN (22:29)
[2017-07-28] MEDS ORDERED: ACETAMINOPHEN TAB 325 MG TAB PO PRN (22:29)
[2017-07-28] MEDS ORDERED: ONDANSETRON 4 MG/2 ML VIAL IVP PRN (22:29)
[2017-07-28] MEDS ORDERED: NALOXONE 0.4 MG/ML 1 ML VIAL IV PRN (22:29)
[2017-07-29 00:28] VITALS: BMI 21.2
[2017-07-29] MEDS ORDERED: diphenhydrAMINE 25 MG CAP PO PRN (08:11)
[2017-07-29] MEDS ORDERED: MISOPROSTOL 100 MCG TAB PO PRN (08:11)
--- NOTE | 2017-07-29 08:17 | P.HPIM ---
History of Present Illness H&P Date: 07/29/17 Chief Complaint: Right upper quadrant pain. Disposition physical and a 72-year-old white female essentially admitted for recurrent right upper quadrant abdominal pain. She's had a previous history of cholecystectomy and has had history of cholelithiasis passing and multiple times. She is even had ERCP by GI done in the past. She states no problem with sphincter of old he was noted. However, she states she understands her symptomatology 1 supposedly passing stones which she can have multiple issues with this from her general surgeon, Dr. Moran. She states no excessive alcohol usage recently. No significant fever. However some nausea and vomiting which was somewhat intractable. She states significant relief once given Zofran in the emergency room. Laboratory results are not in the chart as of yet. However, computed tomography scan of the abdomen and ultrasound of the right upper quadrant did not show significant shadow. Review of Systems Constitutional: Denies chills, Denies fever Eyes: denies blurred vision, denies pain Ears, nose, mouth and throat: Denies headache, Denies sore throat Cardiovascular: Denies chest pain, Denies shortness of breath Respiratory: Denies cough Gastrointestinal: Reports abdominal pain, Reports nausea, Reports vomiting Genitourinary: Denies dysuria, Denies hematuria Musculoskeletal: Denies myalgias Past Medical History Past Medical History: Hyperlipidemia, Thyroid Disorder Additional Past Medical History / Comment(s): diverticulitis, pancreatitis, auto immune disorder- lichenplantis History of Any Multi-Drug Resistant Organisms: None Reported Past Surgical History: Bladder Surgery, Cholecystectomy, Hysterectomy, Tubal Ligation Additional Past Surgical History / Comment(s): nephroplexy, bowel resection, bladder suspension, wisdom teeth removal. Past Anesthesia/Blood Transfusion Reactions: No Reported Reaction Past Psychological History: No Psychological Hx Reported Smoking Status: Former smoker Past Alcohol Use History: Occasional Past Drug Use History: None Reported - Past Family History Mother Family Medical History: Dementia Father Additional Family Medical History / Comment(s): aortic anersym Medications and Allergies Home Medications Medication Instructions Recorded Confirmed Type Aspirin 40.5 mg PO DAILY 10/18/13 07/29/17 History Levothyroxine Sodium [Synthroid] 75 mcg PO DAILY 10/18/13 07/29/17 History Simvastatin [Zocor] 20 mg PO HS 10/18/13 07/29/17 History diphenhydrAMINE [Benadryl] 25 mg PO HS PRN 10/18/13 07/29/17 History Misoprostol [Cytotec] 100 mcg PO DAILY PRN 10/22/14 07/29/17 History Meclizine [Antivert] 25 mg PO BID 14 Days #28 tab 05/05/17 07/29/17 Rx Cholecalciferol (Vitamin D3) 2,000 unit PO DAILY 07/29/17 07/29/17 History [Vitamin D3] Allergies Allergy/AdvReac Type Severity Reaction Status Date / Time acetaminophen AdvReac Anxiety Verified 07/28/17 18:22 [From Darvocet-N] and insomnia propoxyphene napsylate AdvReac anxiety Verified 07/28/17 18:22 [From Darvocet-N] and insomnia tetracycline [Tetracycline] AdvReac bowel Verified 07/28/17 18:22 aggrivation Physical Exam Vitals: Vital Signs Temp Pulse Pulse Resp BP BP Pulse Ox 07/29/17 05:55 98 F 70 18 124/57 96 07/29/17 01:00 98.4 F 70 20 145/69 98 07/29/17 00:00 98.4 F 70 20 145/69 98 07/28/17 22:52 97.8 F 74 16 127/66 98 07/28/17 20:52 97.3 F L 68 16 123/63 100 07/28/17 19:32 97.1 F L 70 16 153/78 97 07/28/17 18:21 98.1 F 68 20 118/64 100 Intake and Output 07/28/17 07/29/17 07/29/17 22:59 06:59 14:59 Intake Total 600 Balance 600 Intake: Intake, IV Titration 600 Amount Sodium Chloride 0.9% 1, 600 000 ml @ 100 mls/hr IV . Q10H [facility] Rx#:[id number] Other: Voiding Method Toilet # Voids 1 Weight 52.617 kg 52.617 kg - Constitutional General appearance: average body habitus - EENT Eyes: EOMI - Neck Neck: no lymphadenopathy - Respiratory Respiratory: bilateral: CTA - Cardiovascular Rhythm: regular Heart sounds: normal: S1, S2 Abnormal Heart Sounds: no S3 Gallop - Gastrointestinal General gastrointestinal: soft, no tenderness, no umbilical hernia Localized gastrointestinal: tender: RUQ - Neurologic Neurologic: CNII-XII intact - Psychiatric Psychiatric: A&O x's 3, appropriate affect, intact judgment & insight Results CBC & Chem 7: 07/28/17 18:55 07/28/17 18:55 Labs: Abnormal Lab Results - Last 24 Hours (Table) 07/28/17 07/28/17 07/28/17 Range/Units 18:55 18:55 18:55 Plt Count 142 L (150-450) k/uL APTT (22.0-30.0) sec Sodium 146 H (137-145) mmol/L Carbon Dioxide 20 L (22-30) mmol/L Plasma Lactic Acid Mehrdad 3.5 H* (0.7-2.0) mmol/L AST 143 H (14-36) U/L ALT 67 H (9-52) U/L 07/28/17 07/28/17 Range/Units 18:55 23:00 Plt Count (150-450) k/uL APTT 20.7 L (22.0-30.0) sec Sodium (137-145) mmol/L Carbon Dioxide (22-30) mmol/L Plasma Lactic Acid Mehrdad 2.9 H* (0.7-2.0) mmol/L AST (14-36) U/L ALT (9-52) U/L Thrombosis Risk Factor Assmnt - Choose All That Apply Each Risk Factor Represents 2 Points: Age 61-74 years Thrombosis Risk Factor Assessment Total Risk Factor Score: 2 Thrombosis Risk Factor Assessment Level: Low Risk Assessment and Plan (1) Intractable nausea and vomiting Current Visit: Yes Status: Acute Code(s): R11.2 - NAUSEA WITH VOMITING, UNSPECIFIED SNOMED Code(s): 645193413 (2) Acute vomiting Current Visit: No Status: Acute Code(s): R11.10 - VOMITING, UNSPECIFIED SNOMED Code(s): 35733108 (3) Right upper quadrant abdominal pain Current Visit: No Status: Acute Code(s): R10.11 - RIGHT UPPER QUADRANT PAIN SNOMED Code(s): 159099328 Plan: We'll go ahead and ask GI to see the patient for evaluation. Clear liquids and medication will be advanced. Await laboratory examination. Otherwise, we'll continue follow from perspective. Anticipate discharge in next 24 hours if tolerating diet with enzymatic stability. She is a full code otherwise. Time with Patient: Greater than 30
[2017-07-29] MEDS: CHOLECALCIFEROL 1,000 UNIT TAB PO SCH (09:10)
[2017-07-29] MEDS: MECLIZINE 25 MG TAB PO SCH ×3 (09:10→20:03)
[2017-07-29] MEDS: LEVOTHYROXINE 75 MCG TAB PO SCH (09:11)
[2017-07-29] MEDS: SODIUM CHLORIDE 0.9% 1,000 ML IV SCH ×2 (16:01→20:03)
--- NOTE | 2017-07-29 19:11 | CONS ---
CONSULTATION REASON FOR CONSULTATION: Recurrent abdominal pain. HISTORY OF PRESENT ILLNESS: The patient is a 72-year-old pleasant white female who was admitted to hospital with acute onset of severe epigastric pain associated with nausea, vomiting that started yesterday morning. The patient has been having intermittent episodes of right upper quadrant abdominal pain on and off for the last 20 years duration. She had a laparoscopic cholecystectomy 20 years ago and since then has been having these episodes on and off. At one time she had an ERCP with CBD stone extraction in 1997. Her symptoms usually last for 1 or 2 hours, sometimes all day and usually subside. She comes to the emergency room usually get some pain medication and discharged. However, yesterday the symptoms became much more intense and hence came into the emergency room. She was noted to have mild elevation of ALT and AST at 75 and 153 respectively. This morning she is feeling better. She denies any further episodes of abdominal pain. PAST MEDICAL HISTORY: Significant for hyperlipidemia, hypothyroidism. PAST SURGICAL HISTORY: Gallbladder surgery, ERCP, hysterectomy, tubal ligation, bladder suspension, bowel resection. MEDICATIONS: At home include aspirin, Synthroid, Benadryl, Zocor, Cytotec, vitamin D3. ALLERGIES: To DARVOCET AND TETRACYCLINE. SOCIAL HISTORY: No smoking. No alcohol use. FAMILY HISTORY: Unremarkable. REVIEW OF SYSTEMS: CARDIOPULMONARY: No chest pain, shortness of breath. GENITOURINARY: No dysuria or hematuria. MUSCULOSKELETAL: Unremarkable. SKIN: Unremarkable. ENDOCRINE: Unremarkable. PSYCHIATRIC: Unremarkable. NEUROLOGY: Unremarkable. ENT/VISION: Unremarkable. CONSTITUTIONAL: No recent weight loss. No fever, chills, night sweats. PHYSICAL EXAMINATION: Blood pressure 145/67, pulse is 70, temperature 98.4. HEENT examination unremarkable. Conjunctivae pink. Sclerae anicteric. Oral cavity, no lesions. NECK: No jugular venous distention or lymph node enlargement. CHEST: Clear to auscultation. HEART: Regular rate and rhythm. ABDOMEN: Soft, mild tenderness. Bowel sounds are positive. No organomegaly. EXTREMITIES: No pedal edema. SKIN: No rashes. NEUROLOGIC: Alert and oriented x3. No focal deficits. LABS: Labs from yesterday: WBC 5.3, hemoglobin 15, platelets are 142. The PT/INR are within normal limits. ALT and AST are 143 and 67 respectively. The rest of the labs are normal. Lactic acid was 2.9. No labs available from today. The abdominal CT done yesterday in the emergency room was unremarkable. Ultrasound of the abdomen did not show any evidence of biliary ductal dilation. IMPRESSION: This is a patient with intermittent episodes of epigastric pain and right upper quadrant abdominal pain on and off for the last 20 years duration. She has these attacks once or twice a year that lasts for a few hours and subsides. She did have an ERCP for a common bile duct stone by Dr. España in 1997 for a CBD stone extraction. Since then, she has been having these symptoms and at this time, with mild elevation of her serum transaminases and possibility of retained common bile duct stone needs to be considered. However, she is asymptomatic today. RECOMMENDATIONS: We will obtain MRCP to see for any CBD stone and based on the results will consider further workup. In the meantime, we will obtain labs for tomorrow and we will follow the patient closely during hospital stay. Thank you for this consultation. ADDISON / YANCY: [id number] /
[2017-07-29] MEDS: ATORVASTATIN 10 MG TAB PO SCH (20:03)
--- NOTE | 2017-07-29 21:00 | MR ---
EXAMINATION TYPE: MR MRCP DATE OF EXAM: 07/29/2017 COMPARISON: Ultrasound and CT 07/28/2017 HISTORY: RUQ abd pain, nausea and vomiting TECHNIQUE: Multiplanar, multisequence MRI departmental protocol. FINDINGS: The intrahepatic biliary tree is negative. The extrahepatic biliary tree has normal appearance, as do es the pancreatic ductal anatomy. The hollow viscera of the abdomen shows evidence of proximal duodenal mural thickening, which could c orrelate with a clinical diagnosis of peptic ulcer disease. The solid viscera of the abdomen are unremarkable. There is no mass or adenopathy. Visualized extra abdominal structures are unremarkable for incidental findings. IMPRESSION: 1. Normal MRCP examination. 2. Evidence of proximal duodenal mural thickening noted, which could correlate with a clinical diagn osis of peptic ulcer disease.
[2017-07-30] MEDS: LEVOTHYROXINE 75 MCG TAB PO SCH (06:13)
[2017-07-30 07:48] LABS: ALT 51 U/L (9-52); AST 46 U/L (14-36); Albumin 3.3 g/dL (3.5-5.0); Alkaline Phosphatase 78 U/L (38-126); Anion Gap 9 mmol/L; Blood Urea Nitrogen 7 mg/dL (7-17); Calcium 8.5 mg/dL (8.4-10.2); Carbon Dioxide 23 mmol/L (22-30); Chloride 110 mmol/L (98-107); Glucose 69 mg/dL (74-99); Potassium 4.1 mmol/L (3.5-5.1); Sodium 142 mmol/L (137-145); Total Bilirubin 0.5 mg/dL (0.2-1.3); Total Protein 5.5 g/dL (6.3-8.2)
[2017-07-30 07:49] LABS: HGB 12.7 gm/dL (11.4-16.0); MCH 28.9 pg (25.0-35.0); MCHC 32.7 g/dL (31.0-37.0); MCV 88.4 fL (80.0-100.0); Mean Platelet Volume 5.7; Platelet Count 236 k/uL (150-450); RBC 4.41 m/uL (3.80-5.40); RDW 13.8 % (11.5-15.5); WBC 4.5 k/uL (3.8-10.6)
[2017-07-30] MEDS: MECLIZINE 25 MG TAB PO SCH (07:57)
[2017-07-30] MEDS: CHOLECALCIFEROL 1,000 UNIT TAB PO SCH (07:57)
[2017-07-30] MEDS ORDERED: MECLIZINE 25 MG TAB PO PRN (07:59)
--- NOTE | 2017-07-30 13:37 | P.PN ---
Subjective Progress Note Date: 07/30/17 Principal diagnosis: Epigastric pain nausea vomiting transaminitis 72-year-old female admitted with severe epigastric pain nausea vomiting transaminitis. Feels better today. History of choledocholithiasis 1998 lap lashawn more than 20 years ago. Presently resting comfortably no recurrent nausea vomiting some mild midepigastric discomfort. Transaminases improved AST 46 ALT total bilirubin and alk phos within normal limits. Afebrile. White count 4.5. MRCP normal however evidence of proximal duodenal mural thickening could relate to clinical diagnosis of peptic ulcer disease. No recent EGD. No history of peptic ulcer disease. Denies hematemesis medical easy melena. Objective - Vital Signs Vital signs: Vital Signs Temp 97.7 F 07/30/17 06:45 Pulse 70 07/30/17 06:45 Resp 16 07/30/17 06:45 BP 117/72 07/30/17 06:45 Pulse Ox 99 07/30/17 06:45 Intake & Output 07/29/17 07/30/17 07/30/17 18:59 06:59 18:59 Intake Total 800 Balance 800 Intake: Intake, IV Titration 800 Amount Sodium Chloride 0.9% 1, 800 000 ml @ 100 mls/hr IV . Q10H [facility] Rx#:[id number] Other: Voiding Method Toilet # Voids 1 - Exam General appearance: The patient is alert, oriented, in no acute distress. HET: Head is normocephalic and atraumatic. Pupils are equal and reactive. Oropharynx is clear without lesions. Neck: Supple without lymphadenopathy. Trachea midline. Heart: S1 S2. Regular rate and rhythm. Lungs: No crackles or wheezes are heard. Abdomen: Soft, mild midepigastric tenderness, nondistended with bowel sounds. No peritoneal signs. No palpable organomegaly or masses. Extremities: Normal skin color and turgor. No cyanosis, rash, ulceration, clubbing, or edema. Radial and pedal pulses are 2/4 bilaterally. Neurological: No focal deficits. Strength and sensation are grossly intact. - Labs CBC & Chem 7: 07/30/17 07:15 07/30/17 07:15 Labs: Abnormal Lab Results - Last 24 Hours (Table) 07/30/17 Range/Units 07:15 Chloride 110 H (98-107) mmol/L Glucose 69 L (74-99) mg/dL AST 46 H (14-36) U/L Total Protein 5.5 L (6.3-8.2) g/dL Albumin 3.3 L (3.5-5.0) g/dL Microbiology - Last 24 Hours (Table) 07/28/17 20:27 Blood Culture - Preliminary Blood No Growth after 24 hours Assessment and Plan (1) Epigastric abdominal pain Narrative/Plan: Possible peptic ulcer disease MRCP reported proximal duodenal mural thickening possible passage of microlithiasis with improvement in transaminases history of choledocholithiasis in 1997 laparoscopic cholecystectomy more than 20 years ago. Current Visit: Yes Status: Acute Code(s): R10.13 - EPIGASTRIC PAIN SNOMED Code(s): 19955555 (2) Intractable nausea and vomiting Current Visit: Yes Status: Acute Code(s): R11.2 - NAUSEA WITH VOMITING, UNSPECIFIED SNOMED Code(s): 646983037 (3) Transaminitis Current Visit: Yes Status: Acute Code(s): R74.0 - NONSPEC ELEV OF LEVELS OF TRANSAMNS & LACTIC ACID DEHYDRGNSE SNOMED Code(s): 722512317 Plan: 1. Protonix 40 mg IV daily. Clear liquid diet with ensure tonight and nothing by mouth after midnight. 2. EGD in a.m. The investment banking manager has discussed the risks, benefits and alternative therapies for the above-mentioned procedure and for both sedation/analgesia as well as necessary blood product administration, if indicated, as they pertain to this patient. The patient has indicated understanding and acceptance of the risks and procedures discussed. Assessment and plan a care discussed with Dr. Knox
[2017-07-30] MEDS: PANTOPRAZOLE 40 MG/10 ML VIAL IVP SCH (14:36)
[2017-07-30] MEDS: SODIUM CHLORIDE 0.9% 1,000 ML IV SCH (14:37)
--- NOTE | 2017-07-30 15:57 | P.DS ---
Providers Date of admission: 07/28/17 22:29 Attending physician: Shad Low Consults: 07/29/17 08:13 Consult Physician Routine Consulting Provider: Andrew España Consult Reason/Comments: Right upper quadrant abdominal pain Do you want consulting provider notified?: Yes Primary care physician: Shad Low - Discharge Diagnosis(es) (1) Intractable nausea and vomiting Current Visit: Yes Status: Acute (2) Acute vomiting Current Visit: No Status: Acute (3) Right upper quadrant abdominal pain Current Visit: No Status: Acute Hospital Course: This is a discharge summary 72-year-old white female centimeter for right upper quadrant pain. Question recurrence of passing cholelithiasis. MRCP was ordered by GI, which was unremarkable. When cleared by GI, we will hopefully discharge. At this time, it is might be necessary for her to have recurrent EGD. We will discharge once cleared by GI. Patient Condition at Discharge: Stable Plan - Discharge Summary Discharge Rx Participant: Yes New Discharge Prescriptions: Continue diphenhydrAMINE [Benadryl] 25 mg PO HS PRN PRN Reason: itch Simvastatin [Zocor] 20 mg PO HS Levothyroxine Sodium [Synthroid] 75 mcg PO DAILY Aspirin 40.5 mg PO DAILY Misoprostol [Cytotec] 100 mcg PO DAILY PRN PRN Reason: MOUTH SORES Cholecalciferol (Vitamin D3) [Vitamin D3] 2,000 unit PO DAILY Discharge Medication List Aspirin 40.5 mg PO DAILY 10/18/13 [History] Levothyroxine Sodium [Synthroid] 75 mcg PO DAILY 10/18/13 [History] Simvastatin [Zocor] 20 mg PO HS 10/18/13 [History] diphenhydrAMINE [Benadryl] 25 mg PO HS PRN 10/18/13 [History] Misoprostol [Cytotec] 100 mcg PO DAILY PRN 10/22/14 [History] Cholecalciferol (Vitamin D3) [Vitamin D3] 2,000 unit PO DAILY 07/29/17 [History] Follow up Appointment(s)/Referral(s): Shad Low MD [Primary Care Provider] - 1-2 days
[2017-07-30] MEDS: ATORVASTATIN 10 MG TAB PO SCH (20:46)
[2017-07-30 20:56] VITALS: RESP 16
[2017-07-31] MEDS: SODIUM CHLORIDE 0.9% 1,000 ML IV SCH ×2 (01:00→10:03)
[2017-07-31 05:17] VITALS: BP 149/72; PULSE 70; TEMP 98
[2017-07-31] MEDS: LEVOTHYROXINE 75 MCG TAB PO SCH (09:03)
[2017-07-31] MEDS: CHOLECALCIFEROL 1,000 UNIT TAB PO SCH (09:04)
[2017-07-31] MEDS: PANTOPRAZOLE 40 MG/10 ML VIAL IVP SCH (09:04)
[2017-07-31] MEDS ORDERED: IV FLUID CONTINUATION 1,000 ML IV ONE (13:47)
[2017-07-31] MEDS ORDERED: PROPOFOL 10 MG/ML 20 ML VIAL IV ONE (13:49)
--- NOTE | 2017-07-31 13:55 | P.PCN ---
Date of Procedure: 07/31/17 Procedure(s) Performed: BRIEF HISTORY: Patient is a 72-year-old, pleasant, white female, scheduled for an upper endoscopy as a part of evaluation of intermittent episodes of epigastric and right upper quadrant abdominal pain for the last several years duration. She had an MRCP done which showed some thickening of the duodenum and potential scheduled for an upper endoscopy to evaluate further. MRCP did not show any evidence of CBD stones. PROCEDURE PERFORMED: Esophagogastroduodenoscopy with biopsy. PREOPERATIVE DIAGNOSIS: Intermittent episodes of epigastric and right upper quadrant abdominal pain. IV sedation per anesthesia. PROCEDURE: After informed consent was obtained, the patient was brought into the endoscopy unit. IV sedation was administered by Anesthesia under continuous monitoring. Initially the Olympus GIF-140 video endoscope was inserted into the mouth. Esophagus intubated without any difficulty. It was gradually advanced into the stomach and duodenum and carefully examined. The bulb and the second part of the duodenum and mild duodenitis.. The scope at this time was withdrawn to the stomach, adequately insufflated with air, and upon careful examination, mucosa of the antrum had mild gastritis and biopsies were done from this area. The, body, cardia and the fundus appeared normal. The scope was then withdrawn into the esophagus. The GE junction was located at 39 cm from the incisors. The esophagus appeared normal. There were no erosions or ulcerations seen and the patient tolerated the procedure well. IMPRESSION: 1. Mild duodenitis but no evidence of peptic ulcer disease 2. Mild antral gastritis. RECOMMENDATIONS: The findings of this examination were discussed with the patient is well as her family. she was advised to follow with the biopsy results. She will continue with Protonix 40 mg daily for 2 months. She'll be seen in the office in 3-4 weeks .
== END 2017-07-31 16:10 | disposition home or self-care (01) | DRG 392 ==
LOC: EC 18:17 → 5MS5E 22:29
PROVIDERS: ADMIT Family Medicine; ATTEND Family Medicine
PROC: 0DB78ZX Excision of Stomach, Pylorus, Via Natural or Artificial Opening Endoscopic, Diagnostic (ICD-10-PCS; principal; 2017-07-31 08:20)
DX: R11.2 Nausea with vomiting, unspecified (principal); R10.11 Right upper quadrant pain; E03.9 Hypothyroidism, unspecified; E78.5 Hyperlipidemia, unspecified; R74.0 Nonspecific elevation of levels of transaminase and lactic acid dehydrogenase [LDH]; K57.90 Diverticulosis of intestine, part unspecified, without perforation or abscess without bleeding; L28.0 Lichen simplex chronicus; Z79.899 Other long term (current) drug therapy; Z79.82 Long term (current) use of aspirin; Z87.891 Personal history of nicotine dependence; Z90.710 Acquired absence of both cervix and uterus; Z88.1 Allergy status to other antibiotic agents; Z88.5 Allergy status to narcotic agent; Z98.51 Tubal ligation status; Z82.0 Family history of epilepsy and other diseases of the nervous system; Z90.49 Acquired absence of other specified parts of digestive tract
CPT/HCPCS: 36415; 43239; 74177; 74181; 76705; 80053; 81003; 83605; 83690; 83735; 84484; 85025; 85027; 85610; 85730; 87040; 88305; 93005; 96361; 96374; 96375; 96376; 99285

== ENCOUNTER → 2018-07-30 | Outpatient (CLI) | payer MEDICARE ==
--- NOTE | 2018-07-31 11:35 | MM ---
Reason for exam: screening (asymptomatic). Last mammogram was performed 1 year and 2 months ago. History: Patient is postmenopausal. Took estrogen for 15 years. Physical Findings: A clinical breast exam by your physician is recommended on an annual basis and results should be correlated with mammographic findings. MG 3D Screening Mammo W/Cad Bilateral CC and MLO view(s) were taken. Prior study comparison: May 29, 2017, bilateral MG 3d screening mammo w/cad. March 18, 2015, bilateral MG screening mammo w CAD. The breast tissue is heterogeneously dense. This may lower the sensitivity of mammography. Two left upper outer quadrant focal asymmetris 3.5cm and 4-5cm from nipple. ASSESSMENT: Incomplete: need additional imaging evaluation, BI-RAD 0 RECOMMENDATION: Special view mammogram of the left breast. If lesion persists on supplemental views, image directed ultrasound is recommended. [facility] will attempt to contact patient to return for supplemental views and ultrasound if indicated.
== END | disposition home or self-care (01) ==
LOC: RADMAMWWP 08:23
PROVIDERS: ATTEND Obstetrics & Gynecology
DX: Z12.31 Encounter for screening mammogram for malignant neoplasm of breast (principal)
CPT/HCPCS: 77063; 77067

== ENCOUNTER → 2018-08-15 | Outpatient (CLI) | payer MEDICARE ==
--- NOTE | 2018-08-18 07:59 | MM ---
Reason for exam: additional evaluation requested from abnormal screening. Last mammogram was performed 1 month ago. History: Patient is postmenopausal. Took estrogen for 15 years. Physical Findings: Nurse did not find any significant physical abnormalities on exam. MG 3D Work Up W/Cad LT Spot compression CC, spot compression MLO, and LM view(s) were taken of the left breast. Prior study comparison: July 30, 2018, bilateral MG 3d screening mammo w/cad. May 29, 2017, bilateral MG 3d screening mammo w/cad. The breast tissue is heterogeneously dense. This may lower the sensitivity of mammography. Benign appearing calcifications in the left breast. The previously seen abnormality resolves on additional views and appears as fibroglandular tissue compatible with summation on the left breast. No suspicious abnormality. These results were verbally communicated with the patient and result sheet given to the patient on 08/15/18. ASSESSMENT: Benign, BI-RAD 2 RECOMMENDATION: Return to routine screening mammogram schedule for both breasts.
== END | disposition home or self-care (01) ==
LOC: RADMAMWWP 14:17
PROVIDERS: ATTEND Obstetrics & Gynecology
DX: R92.8 Other abnormal and inconclusive findings on diagnostic imaging of breast (principal)
CPT/HCPCS: 77065; G0279; 77061

== ENCOUNTER → 2019-08-06 | Outpatient (CLI) | payer MEDICARE ==
--- NOTE | 2019-08-06 12:31 | MM ---
Reason for exam: clinical finding. Last mammogram was performed 1 year ago. History: Patient is postmenopausal. Took estrogen for 15 years. Physical Findings: Nurse Summary: 2cm nodule in the right breast at 10 o'clock (nurse delonte). MG 3D Diag Mammo W/Cad [facility] Bilateral CC and MLO view(s) were taken. Prior study comparison: July 30, 2018, bilateral MG 3d screening mammo w/cad. May 29, 2017, bilateral MG 3d screening mammo w/cad. The breast tissue is heterogeneously dense. This may lower the sensitivity of mammography. There is chronic nodularity in the left breast. There is no discrete abnormality including area of concern right breast palpable. No significant new findings when compared with previous films. These results were verbally communicated with the patient and result sheet given to the patient on 08/06/19. ASSESSMENT: Incomplete: need additional imaging evaluation, BI-RAD 0 RECOMMENDATION: Ultrasound of the right breast.
--- NOTE | 2019-08-06 12:32 | USB ---
Reason for exam: additional evaluation requested from abnormal screening. History: Patient is postmenopausal. Took estrogen for 15 years. US Breast RT Technologist: Samantha Chau Right complete breast ultrasound includes all four quadrants, the retroareolar region and axilla. Finding demonstrates no cystic or solid lesion seen. These results were verbally communicated with the patient and result sheet given to the patient on 08/06/19. ASSESSMENT: Negative, BI-RAD 1 RECOMMENDATION: Routine screening mammogram of both breasts in 1 year.
== END | disposition home or self-care (01) ==
LOC: RADMAMWWP 09:35
PROVIDERS: ATTEND Obstetrics & Gynecology
DX: N63.10 Unspecified lump in the right breast, unspecified quadrant (principal); R92.8 Other abnormal and inconclusive findings on diagnostic imaging of breast
CPT/HCPCS: 77066; 76641; G0279; 77062

== ENCOUNTER → 2020-09-06 | Outpatient (CLI) | payer MEDICARE ==
--- NOTE | 2020-09-07 09:16 | MM ---
Reason for exam: screening (asymptomatic). Last mammogram was performed 1 year and 1 month ago. History: Patient is postmenopausal. Took estrogen for 15 years. Physical Findings: A clinical breast exam by your physician is recommended on an annual basis and results should be correlated with mammographic findings. MG 3D Screening Mammo W/Cad Bilateral CC and MLO view(s) were taken. Prior study comparison: August 06, 2019, bilateral MG 3d diag mammo w/cad [facility]. August 15, 2018, left breast MG 3d work up w/cad LT. The breast tissue is heterogeneously dense. This may lower the sensitivity of mammography. Stable benign calcifications. There is no discrete abnormality. No significant changes when compared with prior studies. ASSESSMENT: Benign, BI-RAD 2 RECOMMENDATION: Routine screening mammogram of both breasts in 1 year.
== END | disposition home or self-care (01) ==
LOC: RADMAMWWP 09:32
PROVIDERS: ATTEND Obstetrics & Gynecology
DX: Z12.31 Encounter for screening mammogram for malignant neoplasm of breast (principal); Z78.0 Asymptomatic menopausal state
CPT/HCPCS: 77063; 77067

== ENCOUNTER 2021-04-21 20:00 | Observation (INO) | payer MEDICARE ==
[2021-04-21] MEDS ORDERED: ASPIRIN 81 MG PO STA (21:18)
[2021-04-21 21:32] LABS: Basophils # (A) 0.1 k/uL (0-0.2); Basophils % (A) 1 %; Eosinophils # (A) 0.3 k/uL (0-0.7); Eosinophils % (A) 4 %; HGB 13.6 gm/dL (11.4-16.0); Lymphocytes # (A) 1.1 k/uL (1.0-4.8); Lymphocytes % (A) 19 %; MCH 29.6 pg (25.0-35.0); MCHC 33.1 g/dL (31.0-37.0); MCV 89.3 fL (80.0-100.0); Monocytes # (A) 0.3 k/uL (0-1.0); Monocytes % (A) 4 %; Neutrophils # (A) 4.1 k/uL (1.3-7.7); Neutrophils % (A) 69 %; Platelet Count 302 k/uL (150-450); RBC 4.59 m/uL (3.80-5.40); RDW 13.8 % (11.5-15.5); WBC 5.9 k/uL (3.8-10.6)
[2021-04-21 21:37] LABS: Amorphous Sediment,Urine Rare /hpf; Appearance,Urine Clear (Clear); Bacteria,Urine Rare /hpf; Bilirubin,Urine Negative (Negative); Blood,Urine Negative (Negative); Color,Urine Colorless; Glucose,Urine (UA) Negative (Negative); Ketones,Urine Negative (Negative); Leukocyte Esterase,Urine Small (Negative); Nitrite,Urine Negative (Negative); PH, Urine 5.5 (5.0-8.0); Protein,Urine Negative (Negative); RBC,Urine 1 /hpf (0-5); Specific Gravity,Urine 1.004 (1.001-1.035); Squamous Epithelial Cell,Urine 1 /hpf (0-4); Urobilinogen,Urine <2.0 mg/dL (<2.0); WBC,Urine 3 /hpf (0-5)
[2021-04-21 21:42] LABS: ALT 24 U/L (4-34); AST 35 U/L (14-36); African American GFR (CKD) >90 (>60 ml/min/1.73 sqM); Albumin 4.3 g/dL (3.5-5.0); Alkaline Phosphatase 67 U/L (38-126); Anion Gap 8 mmol/L; Blood Urea Nitrogen 8 mg/dL (7-17); Carbon Dioxide 22 mmol/L (22-30); Chloride 107 mmol/L (98-107); Glucose 97 mg/dL (74-99); Magnesium 2.1 mg/dL (1.6-2.3); Non-African American GFR(CKD) 87 (>60 ml/min/1.73 sqM); Potassium 4.2 mmol/L (3.5-5.1); Sodium 137 mmol/L (137-145); Total Bilirubin 0.3 mg/dL (0.2-1.3); Total Protein 7.2 g/dL (6.3-8.2)
[2021-04-21 22:01] LABS: Prothrombin Time 10.5 sec (9.0-12.0)
--- NOTE | 2021-04-21 22:06 | XR ---
EXAMINATION TYPE: XR chest 2V DATE OF EXAM: 04/21/2021 COMPARISON: 03/10/2021 HISTORY: 76 years Female. STUDY INDICATION GIVEN: Chest Pain . TECHNIQUE: Frontal and lateral chest radiographs. IMPRESSION: Patchy right lower lobe opacity concerning for developing pneumonia. No pneumothorax or effusion. Normal cardiomediastinal silhouette. Scattered upper lobe lucencies may be reflective COPD/emphysema. Clinical correlation recommended. No acute osseous abnormality seen.
[2021-04-21 22:12] LABS: Partial Thromboplastin Time 21.4 sec (22.0-30.0)
--- NOTE | 2021-04-21 23:08 | CT ---
EXAMINATION TYPE: CT chest angio for PE DATE OF EXAM: 04/21/2021 COMPARISON: None HISTORY: Elevated d-dimer, abnormal EKG. Denies any cardiac hx CT DLP: 242.2 mGycm Automated exposure control for dose reduction was used. CONTRAST: Performed with IV Contrast, patient injected with 100 mL of Isovue 370. There are Three-D postprocessed images. There is patchy peripheral reticular interstitial infiltrate in both lungs. There is no suspicious pu lmonary mass. There is no mediastinal adenopathy. There are no hilar masses. Thoracic aorta is intact. There is no aneurysm or dissection. The ascending aorta measures 3.1 cm. There is no evidence of filling defect in the pulmonary arteries. The thoracic spine is intact. There is no compression fracture. Sternum is intact. Upper abdominal so ft tissues appear intact. There are clips from cholecystectomy. IMPRESSION: No evidence of pulmonary embolism. Peripheral bilateral patchy interstitial infiltrates consistent wi th pulmonary fibrosis.
--- NOTE | 2021-04-21 23:34 | ED ---
General Adult HPI - General Chief complaint: Chest Pain Stated complaint: Abnormal EKG from urgent care Time Seen by Provider: 04/21/21 20:44 Source: patient, family, RN notes reviewed, old records reviewed Mode of arrival: ambulatory Limitations: no limitations - History of Present Illness Initial comments: Patient is a 76-year-old female with past medical history remarkable for hypothyroidism, hyperlipidemia who presents emergency Department complaining of fatigue as well as on-again off-again chest pressure sensation ongoing for the last 2 days. She does endorse some mild shortness of breath. She also endorses some mild pleuritic chest pain as well. Chest pain is nonreproducible on palpation. Describes a tight belt wrapped around her chest. Sent by urgent care for cardiac evaluation. States this is not occurred previously. Denies any history of blood clots. Is not on any form of hormonal therapy. No other acute complaints at this time. Denies any fevers, chills, cough, wheezing. Patient is a former smoker.Patient states she currently is asymptomatic and states the pressure is resolved since urgent care earlier. Does not know any known palliative or provocative factors. - Related Data Home Medications Medication Instructions Recorded Confirmed Aspirin 40.5 mg PO DAILY 10/18/13 04/21/21 Levothyroxine Sodium [Synthroid] 75 mcg PO DAILY 10/18/13 04/21/21 Simvastatin [Zocor] 20 mg PO HS 10/18/13 04/21/21 diphenhydrAMINE [Benadryl] 25 mg PO HS 10/18/13 04/21/21 Cholecalciferol [Vitamin D3 (25 50 mcg PO DAILY 03/10/21 04/21/21 Mcg = 1000 Iu)] Allergies Allergy/AdvReac Type Severity Reaction Status Date / Time propoxyphene napsylate AdvReac anxiety Verified 04/21/21 22:25 [From Darvocet-N] and insomnia tetracycline [Tetracycline] AdvReac bowel Verified 04/21/21 22:25 aggrivation Review of Systems ROS Statement: Those systems with pertinent positive or pertinent negative responses have been documented in the HPI. Review of Systems: CONST: Denies fever EYES: Denies blurry vision ENT: Denies nasal congestion C/V: Endorses resolved pleuritic, chest pressure RESP: Denies shortness of breath GI: Denies abdominal pain : Denies dysuria SKIN: Denies rash. MSK: Denies joint pain. NEURO: Denies headache ROS Other: All systems not noted in ROS Statement are negative. Past Medical History Past Medical History: Hyperlipidemia, Thyroid Disorder Additional Past Medical History / Comment(s): diverticulitis, pancreatitis, auto immune disorder- lichenplantis History of Any Multi-Drug Resistant Organisms: None Reported Past Surgical History: Bladder Surgery, Cholecystectomy, Hysterectomy, Tubal Ligation Additional Past Surgical History / Comment(s): nephroplexy, bowel resection, bladder suspension, wisdom teeth removal. Past Anesthesia/Blood Transfusion Reactions: No Reported Reaction Past Psychological History: No Psychological Hx Reported Smoking Status: Former smoker Past Alcohol Use History: Occasional Past Drug Use History: None Reported - Past Family History Mother Family Medical History: Dementia Father Additional Family Medical History / Comment(s): aortic anersym General Exam - General Exam Comments Initial Comments: General: Appears in no acute distress. HEAD: Normal with no signs of head trauma. EYES: PERRLA, EOMI, conjunctiva normal, no discharge. ENT: Hearing grossly intact, normal oropharynx. RESPIRATORY: Clear breath sounds bilaterally. No wheezes, rales, or rhonchi. C/V: Regular rate and rhythm. S1 and S2 auscultated, no edema, peripheral pulses 2+ and intact throughout ABD: Abd is soft, nontender, nondistended EXT: Normal range of motion, no obvious deformity SKIN: No rashes or lesions observed on exposed skin. NEURO: Alert and oriented 4. Limitations: no limitations Course Vital Signs 04/21/21 20:08 Temperature 98.2 F Pulse Rate 72 Respiratory 22 Rate Blood Pressure 165/87 O2 Sat by Pulse 97 Oximetry Procedures - [place] Protocol (Time Out) Nurse: Jackson Rogers Medical Decision Making - Medical Decision Making Based on the patient's presentation and physical exam, and for possible cardiopulmonary etiology for her current symptoms. While scores low for PE and therefore we will obtain a screening d-dimer in addition to cardiac workup with troponin and EKG and chest x-ray. Urinalysis also be obtained. She will be administered an aspirin. She is currently asymptomatic in terms of chest pain. She was in agreement this plan. EKG showed no signs of acute ischemia. Chest x-ray revealed possible developing pneumonia in the right lower lobe. Laboratory studies were remarkable for an elevated d-dimer of 0.64. Troponin is negative. Remainder the left unremarkable. No leukocytosis. Due to the patient's elevated d-dimer did recommend we obtain a CT angiogram to a PE. She was in agreement this plan. CT imaging and did not reveal PE, but did reveal pulmonary fibrosis in the upper lung bae. No noted infiltrate in the right lower lung. I discussed the findings with the patient. Due to the story, as well as her history did recommend that we admit her for cardiac cath ration. She was in agr eement with this plan. We will trend her troponins will she is here. Echo will be obtained. Cardiology will evaluate the patient the morning. Heart score is moderate at 4. Patient was not administered antibiotics based on the chest x-ray. Patient is asymptomatic, has no symptoms of pneumonia, and CT imaging revealed no signs of pneumonia. I have low suspicion for pulmonary infection at this time, as she has no signs or symptoms. I spoke with LEAH Watts of [facility] who accepted the patient. Patient was therefore admitted in stable condition to cardiac observation telemetry under Dr. Logan. - Lab Data Result diagrams: 04/21/21 21:21 04/21/21 21:21 Lab Results 04/21/21 04/21/21 04/21/21 Range/Units 21:21 21:21 21:21 WBC 5.9 (3.8-10.6) k/uL RBC 4.59 (3.80-5.40) m/uL Hgb 13.6 (11.4-16.0) gm/dL Hct 41.0 (34.0-46.0) % MCV 89.3 (80.0-100.0) fL MCH 29.6 (25.0-35.0) pg MCHC 33.1 (31.0-37.0) g/dL RDW 13.8 (11.5-15.5) % Plt Count 302 (150-450) k/uL MPV 6.0 Neutrophils % 69 % Lymphocytes % 19 % Monocytes % 4 % Eosinophils % 4 % Basophils % 1 % Neutrophils # 4.1 (1.3-7.7) k/uL Lymphocytes # 1.1 (1.0-4.8) k/uL Monocytes # 0.3 (0-1.0) k/uL Eosinophils # 0.3 (0-0.7) k/uL Basophils # 0.1 (0-0.2) k/uL PT 10.5 (9.0-12.0) sec INR 1.0 (<1.2) APTT 21.4 L (22.0-30.0) sec D-Dimer 0.64 H (<0.60) mg/L FEU Sodium 137 (137-145) mmol/L Potassium 4.2 (3.5-5.1) mmol/L Chloride 107 (98-107) mmol/L Carbon Dioxide 22 (22-30) mmol/L Anion Gap 8 mmol/L BUN 8 (7-17) mg/dL Creatinine 0.62 (0.52-1.04) mg/dL Est GFR (CKD-EPI)AfAm >90 (>60 ml/min/1.73 sqM) Est GFR (CKD-EPI)NonAf 87 (>60 ml/min/1.73 sqM) Glucose 97 (74-99) mg/dL Calcium 9.0 (8.4-10.2) mg/dL Magnesium 2.1 (1.6-2.3) mg/dL Total Bilirubin 0.3 (0.2-1.3) mg/dL AST 35 (14-36) U/L ALT 24 (4-34) U/L Alkaline Phosphatase 67 (38-126) U/L Troponin I (0.000-0.034) ng/mL Total Protein 7.2 (6.3-8.2) g/dL Albumin 4.3 (3.5-5.0) g/dL Urine Color Urine Appearance (Clear) Urine pH (5.0-8.0) Ur Specific [place] (1.001-1.035) Urine Protein (Negative) Urine Glucose (UA) (Negative) Urine Ketones (Negative) Urine Blood (Negative) Urine Nitrite (Negative) Urine Bilirubin (Negative) Urine Urobilinogen (<2.0) mg/dL Ur Leukocyte Esterase (Negative) Urine RBC (0-5) /hpf Urine WBC (0-5) /hpf Ur Squamous Epith Cells (0-4) /hpf Amorphous Sediment (None) /hpf Urine Bacteria (None) /hpf 04/21/21 04/21/21 Range/Units 21:21 21:25 WBC (3.8-10.6) k/uL RBC (3.80-5.40) m/uL Hgb (11.4-16.0) gm/dL Hct (34.0-46.0) % MCV (80.0-100.0) fL MCH (25.0-35.0) pg MCHC (31.0-37.0) g/dL RDW (11.5-15.5) % Plt Count (150-450) k/uL MPV Neutrophils % % Lymphocytes % % Monocytes % % Eosinophils % % Basophils % % Neutrophils # (1.3-7.7) k/uL Lymphocytes # (1.0-4.8) k/uL Monocytes # (0-1.0) k/uL Eosinophils # (0-0.7) k/uL Basophils # (0-0.2) k/uL PT (9.0-12.0) sec INR (<1.2) APTT (22.0-30.0) sec D-Dimer (<0.60) mg/L FEU Sodium (137-145) mmol/L Potassium (3.5-5.1) mmol/L Chloride (98-107) mmol/L Carbon Dioxide (22-30) mmol/L Anion Gap mmol/L BUN (7-17) mg/dL Creatinine (0.52-1.04) mg/dL Est GFR (CKD-EPI)AfAm (>60 ml/min/1.73 sqM) Est GFR (CKD-EPI)NonAf (>60 ml/min/1.73 sqM) Glucose (74-99) mg/dL Calcium (8.4-10.2) mg/dL Magnesium (1.6-2.3) mg/dL Total Bilirubin (0.2-1.3) mg/dL AST (14-36) U/L ALT (4-34) U/L Alkaline Phosphatase (38-126) U/L Troponin I <0.012 (0.000-0.034) ng/mL Total Protein (6.3-8.2) g/dL Albumin (3.5-5.0) g/dL Urine Color Colorless Urine Appearance Clear (Clear) Urine pH 5.5 (5.0-8.0) Ur Specific [place] 1.004 (1.001-1.035) Urine Protein Negative (Negative) Urine Glucose (UA) Negative (Negative) Urine Ketones Negative (Negative) Urine Blood Negative (Negative) Urine Nitrite Negative (Negative) Urine Bilirubin Negative (Negative) Urine Urobilinogen <2.0 (<2.0) mg/dL Ur Leukocyte Esterase Small H (Negative) Urine RBC 1 (0-5) /hpf Urine WBC 3 (0-5) /hpf Ur Squamous Epith Cells 1 (0-4) /hpf Amorphous Sediment Rare H (None) /hpf Urine Bacteria Rare H (None) /hpf - EKG Data -: EKG Interpreted by Me EKG Comments: 12-lead Electrocardiogram Interpretation Note EKG was reviewed and interpreted by myself. 12-lead ECG performed at 2024 is interpreted by me as revealing normal sinus rhythm at a rate of 66 beats per minute. [place] is normal. AL interval is 143 ms, QRS duration is 85 ms, QTc is 400 ms.. There were no ST or T wave abnormalities to suggest myocardial ischemia or injury. R wave progression across the precordium was satisfactory. By my interpretation this EKG is non-diagnostic for acute ischemia. Disposition Clinical Impression: Chest pain of unknown etiology Disposition: ADMITTED IP TO THIS HOSP Condition: Stable Referrals: Shad Low MD [Primary Care Provider] - 1-2 days
[2021-04-21] MEDS ORDERED: ONDANSETRON 4 MG/2 ML VIAL IVP PRN (23:35)
[2021-04-21] MEDS ORDERED: NALOXONE 0.4 MG/ML 1 ML VIAL IV PRN (23:35)
[2021-04-21] MEDS ORDERED: KETOROLAC 15 MG/ML 1 ML VIAL IVP PRN (23:35)
[2021-04-22] MEDS: HEPARIN SODIUM,PORCINE/PF 5,000 UNIT/0.5 ML SYRINGE SQ SCH ×2 (03:01→08:51)
[2021-04-22 04:56] LABS: Basophils # (A) 0.1 k/uL (0-0.2); Basophils % (A) 1 %; Eosinophils # (A) 0.3 k/uL (0-0.7); Eosinophils % (A) 4 %; HCT 38.9 % (34.0-46.0); HGB 12.9 gm/dL (11.4-16.0); Lymphocytes # (A) 1.3 k/uL (1.0-4.8); Lymphocytes % (A) 21 %; MCH 30.4 pg (25.0-35.0); MCHC 33.1 g/dL (31.0-37.0); MCV 91.8 fL (80.0-100.0); Mean Platelet Volume 6.4; Monocytes # (A) 0.4 k/uL (0-1.0); Monocytes % (A) 7 %; Neutrophils # (A) 4.1 k/uL (1.3-7.7); Neutrophils % (A) 65 %; Platelet Count 301 k/uL (150-450); RBC 4.24 m/uL (3.80-5.40); RDW 13.4 % (11.5-15.5); WBC 6.3 k/uL (3.8-10.6)
[2021-04-22 04:57] LABS: African American GFR (CKD) >90 (>60 ml/min/1.73 sqM); Anion Gap 5 mmol/L; Blood Urea Nitrogen 9 mg/dL (7-17); Calcium 8.8 mg/dL (8.4-10.2); Carbon Dioxide 24 mmol/L (22-30); Chloride 108 mmol/L (98-107); Glucose 91 mg/dL (74-99); Non-African American GFR(CKD) 86 (>60 ml/min/1.73 sqM); Potassium 4.1 mmol/L (3.5-5.1); Sodium 137 mmol/L (137-145)
[2021-04-22] MEDS ORDERED: LEVOTHYROXINE 75 MCG TAB PO SCH (06:30)
[2021-04-22] MEDS ORDERED: ASPIRIN 81 MG PO SCH (09:00)
[2021-04-22 09:04] VITALS: BP 131/71; PULSE 67; RESP 15; TEMP 98
[2021-04-22] MEDS ORDERED: PANTOPRAZOLE 40 MG/10 ML VIAL IVP SCH (11:30)
--- NOTE | 2021-04-22 11:56 | P.HPIM ---
History of Present Illness Patient is a 76-year-old female came in with complaints of pressure-like sensation has been going on for about 3 days. Patient states it's bandlike sensation and then she also said yesterday her pain is moderate severity 6-7/10 mostly after eating. Patient denied any clear odynophagia but had pain in the retrosternal area after eating. Patient denied any fever chills patient denied any lightheadedness, the pain is nonradiating in the midsternal area. Pain is nonpleuritic patient had a CT angios the chest which did not show any pulmonary embolism. Patient doesn't have any thoracic vertebral disease. There is no pneumonia. Troponins are negative EKG did not show any acute ST-T wave changes. REVIEW OF SYSTEMS: CONSTITUTIONAL: No fever, no malaise, no fatigue. HEENT: No recent visual problems or hearing problems. Denied any sore throat. CARDIOVASCULAR: No orthopnea, PND, no palpitations, no syncope. PULMONARY: No shortness of breath, no cough, no hemoptysis. GASTROINTESTINAL: No diarrhea. NEUROLOGICAL: No headaches, no weakness, no numbness. HEMATOLOGICAL: Denies any bleeding or petechiae. GENITOURINARY: Denies any burning micturition, frequency, or urgency. MUSCULOSKELETAL/RHEUMATOLOGICAL: Denies any joint pain, swelling, or any muscle pain. ENDOCRINE: Denies any polyuria or polydipsia. The rest of the 14-point review of systems is negative. PHYSICAL EXAMINATION: GENERAL: The patient is alert and oriented x3, not in any acute distress. Well developed, well nourished. HEENT: Pupils are round and equally reacting to light. EOMI. No scleral icterus. No conjunctival pallor. Normocephalic, atraumatic. No pharyngeal erythema. No thyromegaly. And has lichen planus on the tongue CARDIOVASCULAR: S1 and S2 present. No murmurs, rubs, or gallops. PULMONARY: Chest is clear to auscultation, no wheezing or crackles. ABDOMEN: Soft, nontender, nondistended, normoactive bowel sounds. No palpable organomegaly. MUSCULOSKELETAL: No joint swelling or deformity. EXTREMITIES: No cyanosis, clubbing, or pedal edema. NEUROLOGICAL: Gross neurological examination did not reveal any focal deficits. SKIN: No rashes. Assessment and plan -Chest pain, retrosternal pain probably due to esophagitis and patient was discharged on Prilosec patient was evaluated by cardiology rule out a concurrent syndromes if cleared by cardiology patient will be discharged today ruled out upper embolism -Hypothyroidism -Hyperlipidemia -Lichen planus Patient probably will be discharged later today if cleared by cardiology Past Medical History Past Medical History: Hyperlipidemia, Thyroid Disorder Additional Past Medical History / Comment(s): diverticulitis, pancreatitis, auto immune disorder- lichenplantis History of Any Multi-Drug Resistant Organisms: None Reported Past Surgical History: Bladder Surgery, Cholecystectomy, Hysterectomy, Tubal Ligation Additional Past Surgical History / Comment(s): nephroplexy, bowel resection, bladder suspension, wisdom teeth removal. Past Anesthesia/Blood Transfusion Reactions: No Reported Reaction Past Psychological History: No Psychological Hx Reported Smoking Status: Former smoker Past Alcohol Use History: Occasional Past Drug Use History: None Reported - Past Family History Mother Family Medical History: Dementia Father Additional Family Medical History / Comment(s): aortic anersym Medications and Allergies Home Medications Medication Instructions Recorded Confirmed Type Aspirin 40.5 mg PO DAILY 10/18/13 04/21/21 History Levothyroxine Sodium [Synthroid] 75 mcg PO DAILY 10/18/13 04/21/21 History Simvastatin [Zocor] 20 mg PO HS 10/18/13 04/21/21 History diphenhydrAMINE [Benadryl] 25 mg PO HS 10/18/13 04/21/21 History Cholecalciferol [Vitamin D3 (25 50 mcg PO DAILY 03/10/21 04/21/21 History Mcg = 1000 Iu)] Allergies Allergy/AdvReac Type Severity Reaction Status Date / Time propoxyphene napsylate AdvReac anxiety Verified 04/21/21 22:25 [From Darvocet-N] and insomnia tetracycline [Tetracycline] AdvReac bowel Verified 04/21/21 22:25 aggrivation Physical Exam Vitals: Vital Signs Temp Pulse Pulse Resp BP BP Pulse Ox 04/22/21 08:03 99 04/22/21 07:05 98 F 67 15 131/71 98 04/22/21 00:00 79 20 142/77 99 04/21/21 20:08 98.2 F 72 22 165/87 97 Intake and Output 04/21/21 04/22/21 04/22/21 22:59 06:59 14:59 Other: # Voids 1 Weight 53.524 kg 53.524 kg Results CBC & Chem 7: 04/22/21 04:01 04/22/21 04:07 Labs: Abnormal Lab Results - Last 24 Hours (Table) 04/21/21 04/21/21 04/22/21 Range/Units 21:21 21:25 04:07 APTT 21.4 L (22.0-30.0) sec D-Dimer 0.64 H (<0.60) mg/L FEU Chloride 108 H (98-107) mmol/L Ur Leukocyte Esterase Small H (Negative) Amorphous Sediment Rare H (None) /hpf Urine Bacteria Rare H (None) /hpf Thrombosis Risk Factor Assmnt - Choose All That Apply Each Risk Factor Represents 3 Points: Age 75 years or older Thrombosis Risk Factor Assessment Total Risk Factor Score: 3 Thrombosis Risk Factor Assessment Level: Moderate Risk
--- NOTE | 2021-04-22 11:56 | P.DS ---
Providers Date of admission: 04/21/21 23:35 Attending physician: Yeyo Logan Consults: 04/21/21 23:35 Consult Physician Routine Consulting Provider: [facility] Consult Reason/Comments: chest pain of unknown etiology Do you want consulting provider notified?: Yes, Notify in am Primary care physician: Shad Low [facility] Course: Please refer to my history of present illness for further details Patient Condition at Discharge: Stable Plan - Discharge Summary New Discharge Prescriptions: No Action diphenhydrAMINE [Benadryl] 25 mg PO HS Simvastatin [Zocor] 20 mg PO HS Levothyroxine Sodium [Synthroid] 75 mcg PO DAILY Aspirin 40.5 mg PO DAILY Cholecalciferol [Vitamin D3 (25 Mcg = 1000 Iu)] 50 mcg PO DAILY Discharge Medication List Aspirin 40.5 mg PO DAILY 10/18/13 [History] Levothyroxine Sodium [Synthroid] 75 mcg PO DAILY 10/18/13 [History] Simvastatin [Zocor] 20 mg PO HS 10/18/13 [History] diphenhydrAMINE [Benadryl] 25 mg PO HS 10/18/13 [History] Cholecalciferol [Vitamin D3 (25 Mcg = 1000 Iu)] 50 mcg PO DAILY 03/10/21 [History] Follow up Appointment(s)/Referral(s): Shad Low MD [Primary Care Provider] - 3 Days Discharge Disposition: HOME SELF-CARE
--- NOTE | 2021-04-22 12:13 | P.CRDCN ---
History of Present Illness History of present illness: HISTORY OF PRESENTING ILLNESS This is a pleasant 76-year-old female past medical history significant for dyslipidemia. 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 We have been asked to see in consultation for chest pain. She is complaining of a 2 day history of nagging squeezing chest pain in the mid-sternal region. It was worsened last night by eating a baked potato. She felt like it was getting stuck in her chest and was hurting to swallow. She had no associated shortness of breath, nausea, vomiting or palpitations. She recently was here with abdominal pain and thought to have a CBD stone that likely passed. She had elevated liver enzymes. She has had cholecystectomy as well as colon resection secondary to diverticulitis in the past. The pain subsided last evening she was able to sleep through the night. She currently has no chest discomfort. EKG revealed sinus rhythm with no acute ST or T wave abnormalities noted heart rate of 66. Chest x-ray revealed underlying COPD. CTA was negative for PE. Laboratory data reviewed, cardiac enzymes negative 3. Current daily cardiac medications include aspirin 40.5 mg daily and simvastatin 20 mg daily. According to the patient approximately 7 years ago she had a heart catheterization that she was told was normal, exact details unavailable. In 2013 she had a Cardiolite stress test that was normal. REVIEW OF SYSTEMS At the time of my exam: CONSTITUTIONAL: Denies fever or chills. CARDIOVASCULAR: Denies chest pain, shortness of breath, orthopnea, PND or palpitations. RESPIRATORY: Denies cough. GASTROINTESTINAL: Denies abdominal pain, diarrhea, constipation, nausea or vomiting. MUSCULOSKELETAL: Denies myalgias. NEUROLOGIC: Denies numbness, tingling, headache or weakness. ENDOCRINE: Denies fatigue, weight change, polydipsia or polyurina. GENITOURINARY: Denies burning, hematuria or urgency with micturation. HEMATOLOGIC: Denies history of anemia or bleeding. PHYSICAL EXAMINATION Blood pressure 131/71 heart rate 67 afebrile and maintaining oxygen saturation on room air. CONSTITUTIONAL: No apparent distress. HEENT: Head is normocephalic. Pupils are equal, round. Sclerae anicteric. Mucous membranes of the mouth are moist. No JVD. No carotid bruit. CHEST EXAMINATION: Lungs are clear to auscultation. No chest wall tenderness is noted on palpation or with deep breathing. HEART EXAMINATION: Regular rate and rhythm. S1, S2 heard. No murmurs, gallops or rub. ABDOMEN: Soft, nontender. EXTREMITIES: 2+ peripheral pulses, no lower extremity edema and no calf tenderness. NEUROLOGIC EXAMINATION: Patient is awake, alert and oriented x3. ASSESSMENT Chest pain, atypical Dyslipidemia PLAN An acute coronary event has been ruled out. Echocardiogram has been ordered and will be reviewed. Pain is atypical for angina. Likely related to GI etiology. Stable for discharge from a cardiac perspective. Thank you kindly for this consultation. Nurse Practitioner note has been reviewed, I agree with a documented findings and plan of care. Patient was seen and examined. Past Medical History Past Medical History: Hyperlipidemia, Thyroid Disorder Additional Past Medical History / Comment(s): diverticulitis, pancreatitis, auto immune disorder- lichenplantis History of Any Multi-Drug Resistant Organisms: None Reported Past Surgical History: Bladder Surgery, Cholecystectomy, Hysterectomy, Tubal Ligation Additional Past Surgical History / Comment(s): nephroplexy, bowel resection, bladder suspension, wisdom teeth removal. Past Anesthesia/Blood Transfusion Reactions: No Reported Reaction Past Psychological History: No Psychological Hx Reported Smoking Status: Former smoker Past Alcohol Use History: Occasional Past Drug Use History: None Reported - Past Family History Mother Family Medical History: Dementia Father Additional Family Medical History / Comment(s): aortic anersym Medications and Allergies Home Medications Medication Instructions Recorded Confirmed Type Aspirin 40.5 mg PO DAILY 10/18/13 04/21/21 History Levothyroxine Sodium [Synthroid] 75 mcg PO DAILY 10/18/13 04/21/21 History Simvastatin [Zocor] 20 mg PO HS 10/18/13 04/21/21 History diphenhydrAMINE [Benadryl] 25 mg PO HS 10/18/13 04/21/21 History Cholecalciferol [Vitamin D3 (25 50 mcg PO DAILY 03/10/21 04/21/21 History Mcg = 1000 Iu)] Allergies Allergy/AdvReac Type Severity Reaction Status Date / Time propoxyphene napsylate AdvReac anxiety Verified 04/21/21 22:25 [From Darvocet-N] and insomnia tetracycline [Tetracycline] AdvReac bowel Verified 04/21/21 22:25 aggrivation Physical Exam Vitals: Vital Signs Temp Pulse Resp BP Pulse Ox 04/22/21 08:03 99 04/22/21 00:00 79 20 142/77 99 04/21/21 20:08 98.2 F 72 22 165/87 97 Intake and Output 04/21/21 04/22/21 04/22/21 22:59 06:59 14:59 Other: # Voids 1 Weight 53.524 kg 53.524 kg Results 04/22/21 04:01 04/22/21 04:07 Cardiac Enzymes 04/21/21 04/21/21 04/22/21 Range/Units 21:21 21: 00:30 AST 35 (14-36) U/L Troponin I <0.012 <0.012 (0.000-0.034) ng/mL 04/22/21 Range/Units 04:07 AST (14-36) U/L Troponin I <0.012 (0.000-0.034) ng/mL Coagulation 04/21/21 Range/Units 21: PT 10.5 (9.0-12.0) sec APTT 21.4 L (22.0-30.0) sec CBC 04/21/21 04/22/21 Range/Units 21:21 04:01 WBC 5.9 6.3 (3.8-10.6) k/uL RBC 4.59 4.24 (3.80-5.40) m/uL Hgb 13.6 12.9 (11.4-16.0) gm/dL Hct 41.0 38.9 (34.0-46.0) % Plt Count 302 301 (150-450) k/uL Comprehensive Metabolic Panel 04/21/21 04/22/21 Range/Units 21:21 04:07 Sodium 137 137 (137-145) mmol/L Potassium 4.2 4.1 (3.5-5.1) mmol/L Chloride 107 108 H (98-107) mmol/L Carbon Dioxide 22 24 (22-30) mmol/L BUN 8 9 (7-17) mg/dL Creatinine 0.62 0.64 (0.52-1.04) mg/dL Glucose 97 91 (74-99) mg/dL Calcium 9.0 8.8 (8.4-10.2) mg/dL AST 35 (14-36) U/L ALT 24 (4-34) U/L Alkaline Phosphatase 67 (38-126) U/L Total Protein 7.2 (6.3-8.2) g/dL Albumin 4.3 (3.5-5.0) g/dL Current Medications Generic Name Dose Route Start Last Admin Trade Name Freq PRN Reason Stop Dose Admin Aspirin 40.5 mg 04/22/21 09:00 Aspirin 81 Mg PO DAILY [facility] Atorvastatin Calcium 10 mg 04/22/21 21:00 Atorvastatin 10 Mg Tab PO HS [facility] Heparin Sodium (Porcine) 5,000 unit 04/21/21 23:45 04/22/21 03:01 Heparin Sodium,Porcine/Pf 5,000 Unit/0.5 Ml Syringe SQ 5,000 unit Q12HR [facility] Administration Ketorolac Tromethamine 15 mg 04/21/21 23:35 Ketorolac 15 Mg/Ml 1 Ml Vial IVP 04/24/21 23:36 Q6HR PRN Moderate Pain Levothyroxine Sodium 75 mcg 04/22/21 06:30 04/22/21 05:44 Levothyroxine 75 Mcg Tab PO Not Given DAILY@0630 [facility] Naloxone HCl 0.2 mg 04/21/21 23:35 Naloxone 0.4 Mg/Ml 1 Ml Vial IV Q2M PRN Opioid Reversal Ondansetron HCl 4 mg 04/21/21 23:35 Ondansetron 4 Mg/2 Ml Vial IVP Q8HR PRN Nausea And Vomiting Intake and Output 04/21/21 04/22/21 04/22/21 22:59 06:59 14:59 Other: # Voids 1 Weight 53.524 kg 53.524 kg 04/22/21 04:01 04/22/21 04:07
--- NOTE | 2021-04-22 13:56 | ECHOF ---
Referral Reason:chest pain MEASUREMENTS -------- HEIGHT: 157.5 cm WEIGHT: 53.5 kg BP: 142/77 RVIDd: 3.0 cm (< 3.3) IVSd: 1.0 cm (0.6 - 1.1) LVIDd: 3.7 cm (3.9 - 5.3) LVPWd: 1.1 cm (0.6 - 1.1) IVSs: 1.3 cm LVIDs: 2.5 cm LVPWs: 1.3 cm LAESV Index (A-L): 12.92 ml/m Ao Diam: 2.6 cm (2.0 - 3.7) AV Cusp: 1.7 cm (1.5 - 2.6) LA Diam: 2.1 cm (2.7 - 3.8) MV E Azar: 0.65 m/s MV DecT: 220 ms MV A Azar: 0.92 m/s MV E/A Ratio: 0.70 RAP: 5.00 mmHg RVSP: 19.00 mmHg FINDINGS -------- Sinus rhythm. This was a technically adequate study. The left ventricular size is normal. Left ventricular wall thickness is normal. Overall left vent ricular systolic function is normal with, an EF between 55 - 60 %. The right ventricle is normal in size. Normal LA size by volume 22+/-6 ml/m2. The right atrial size is normal. Interatrial and interventricular septum intact. There is no evidence of aortic regurgitation. There is no evidence of aortic stenosis. There is trace to mild mitral regurgitation. Mild tricuspid regurgitation present. There is no evidence of pulmonary hypertension. The right v entricular systolic pressure, as measured by Doppler, is 19.00mmHg. Trace/mild (physiologic) pulmonic regurgitation. The aortic root size is normal. Normal inferior vena cava with normal inspiratory collapse consistent with estimated right atrial pre ssure of 5 mmHg. There is no pericardial effusion. CONCLUSIONS -------- 1. The left ventricular size is normal. 2. Left ventricular wall thickness is normal. 3. Overall left ventricular systolic function is normal with, an EF between 55 - 60 %. 4. There is trace to mild mitral regurgitation. 5. Mild tricuspid regurgitation present. 6. Trace/mild (physiologic) pulmonic regurgitation. [employer] JOURNEYMAN WIREMAN: Angie Soto, [facility]
[2021-04-22] MEDS ORDERED: ATORVASTATIN 10 MG TAB PO SCH (21:00)
== END 2021-04-22 13:53 | disposition home or self-care (01) ==
LOC: EC 20:00 → 6NMEDSUR 23:35
PROVIDERS: ADMIT Hospitalist; ATTEND Hospitalist
DX: R07.89 Other chest pain (principal); R79.89 Other specified abnormal findings of blood chemistry; R53.83 Other fatigue; R06.02 Shortness of breath; R07.81 Pleurodynia; R94.31 Abnormal electrocardiogram [ECG] [EKG]; E03.9 Hypothyroidism, unspecified; K57.92 Diverticulitis of intestine, part unspecified, without perforation or abscess without bleeding; L43.9 Lichen planus, unspecified; E78.5 Hyperlipidemia, unspecified; J84.10 Pulmonary fibrosis, unspecified; J44.9 Chronic obstructive pulmonary disease, unspecified; K85.90 Acute pancreatitis without necrosis or infection, unspecified; I08.1 Rheumatic disorders of both mitral and tricuspid valves; Z87.891 Personal history of nicotine dependence; Z90.49 Acquired absence of other specified parts of digestive tract; Z90.710 Acquired absence of both cervix and uterus; Z79.899 Other long term (current) drug therapy; Z79.890 Hormone replacement therapy; Z88.5 Allergy status to narcotic agent; Z88.1 Allergy status to other antibiotic agents; Z81.8 Family history of other mental and behavioral disorders; Z82.49 Family history of ischemic heart disease and other diseases of the circulatory system
CPT/HCPCS: 96372; 99285; 36415; 94760; 93005; 93306; 85379; 80053; 80048; 83735; 84484 ×2; 85025 ×2; 85610; 85730; 81001; 71046; 71275; G0378; Q9967; J1644